=== PATIENT | male | born 1960 | race Caucasian/White ===

== ENCOUNTER → 2017-09-17 | Outpatient (CLI) | payer BC, OTHER ==
[~2017-09-17] MED LIST: CEFD300C PO; CETI10CA PO; DIPH25TA82 PO
--- NOTE | 2017-09-17 10:49 | Diagnostic Imaging Report ---
PROCEDURE: CT sinuses without contrast TECHNIQUE: Multiple contiguous axial images were obtained through the sinuses without the use of intravenous contrast. Coronal and sagittal reformations were then performed. INDICATION: Chronic sinus infection. No priors for comparison. FINDINGS: The mastoid air cells, middle ear cavities and inner ear structures appeared unremarkable. External auditory canals appeared normal. The sphenoid sinuses are clear. There is very minimal membrane thickening of few ethmoid air cells anteriorly ethmoids otherwise clear. Frontal sinuses are clear. There is lobular membrane thickening in the bilateral maxillary sinus floors left somewhat greater than right. Tissue thickening on the left with maximal 6.8 mm. The some low-density debris likely some mucus or focal membrane thickening narrowing but not obstructing the right maxillary sinus ostia. The bony infundibula showed no irregularity. There is very minimal bilateral nasal septal spurring of only a few millimeter likely insignificant. The nasal bones themselves unremarkable. IMPRESSION: Mild left greater than right maxillary sinus membrane thickening. The focal membrane thickening or mucous debris narrows but did not obstruct the right maxillary sinus ostia. Trace membrane thickening in the ethmoids. No air-fluid levels. No bony destruction. Dictated by: Dictated on workstation # [id number]
== END ==
LOC: RAD 09:10
PROVIDERS: ATTEND Otolaryngology Otolaryngology/Facial Plastic Surgery
DX: J32.9 Chronic sinusitis, unspecified (principal)
CPT/HCPCS: 70486

== ENCOUNTER 2017-10-05 12:51 | Outpatient (CLI) | payer BC ==
[~2017-10-05] VITALS: Ht 182.9 cm; Wt 104.9 kg
[2017-10-05 12:59] VITALS: BP 125/76
[2017-10-05] MEDS ORDERED: CYAN250010 PO (13:04)
[2017-10-05] MEDS ORDERED: BIOF1TAB6 PO (13:04)
[2017-10-05] MEDS ORDERED: GINK30CA3 PO (13:04)
[2017-10-05] MEDS ORDERED: MULT-517 PO (13:04)
[2017-10-05] MEDS ORDERED: DOCU-238 PO (13:04)
[2017-10-05 13:47] LABS: BASOPHILS % (AUTO) 0 % (0-10); EOSINOPHILS % (AUTO) 0 % (0-10); HEMATOCRIT 41 % (40-54); HEMOGLOBIN 14.1 G/DL (13.3-17.7); LYMPHOCYTES # (AUTO) 0.9 X 10^3 (1.0-4.0); LYMPHOCYTES % (AUTO) 12 % (12-44); MEAN CORPUSCULAR HEMOGLOBIN 33 PG (25-34); MEAN CORPUSCULAR HGB CONC 34 G/DL (32-36); MEAN CORPUSCULAR VOLUME 95 FL (80-99); MEAN PLATELET VOLUME 8.8 FL (7.4-10.4); MONOCYTES # (AUTO) 0.3 X 10^3 (0.0-1.0); MONOCYTES % (AUTO) 3 % (0-12); NEUTROPHILS # (AUTO) 6.6 X 10^3 (1.8-7.8); NEUTROPHILS % (AUTO) 85 % (42-75); PLATELET COUNT 289 10^3/uL (130-400); RED BLOOD COUNT 4.33 10^6/uL (4.35-5.85); RED CELL DISTRIBUTION WIDTH 11.3 % (10.0-14.5); WHITE BLOOD COUNT 7.7 10^3/uL (4.3-11.0)
[2017-10-05 14:01] LABS: BUN/CREATININE RATIO 18; CALCIUM 9.4 MG/DL (8.5-10.1); CARBON DIOXIDE 23 MMOL/L (21-32); CHLORIDE 106 MMOL/L (98-107); CREATININE SERUM 1.02 MG/DL (0.60-1.30); GFR ESTIMATED > 60; GLUCOSE 118 MG/DL (70-105); POTASSIUM 4.2 MMOL/L (3.6-5.0); SODIUM 136 MMOL/L (135-145)
== END 2017-10-05 15:00 | disposition home or self-care (01) ==
LOC: PREOP 12:51
PROVIDERS: ATTEND Otolaryngology Otolaryngology/Facial Plastic Surgery
DX: Z01.810 Encounter for preprocedural cardiovascular examination (principal); Z01.812 Encounter for preprocedural laboratory examination; Z11.2 Encounter for screening for other bacterial diseases; J32.9 Chronic sinusitis, unspecified; J34.2 Deviated nasal septum; J34.3 Hypertrophy of nasal turbinates
CPT/HCPCS: 36415; 80048; 85025; 87081

== ENCOUNTER 2017-10-08 07:44 | Day surgery (SDC) | payer BC ==
[~2017-10-08] VITALS: Ht 182.9 cm; Wt 104.9 kg
[~2017-10-08 07:44] MED LIST changes: +BIOF1TAB6 PO; +CYAN250010 PO; +DOCU-238 PO; +GINK30CA3 PO; +MULT-517 PO
--- OUTSIDE RECORDS SUMMARY | 2017-10-08 07:49 | XMS REPORT | Continuity of Care Document ---
Author Author [facility] Address Unknown Phone Unavailable Allergies Active Description Code Type Severity Reaction Onset Reported/Identified Relationship to Patient Clinical Status Yes No Known Drug Allergies [id number] Drug Allergy Unknown N/A 10/05/2017 Medications There is no data. Problems Date Dx Coded Attending Type Code Diagnosis Diagnosed By 07/02/1328 AMANDA OATES, CECILIA Hopper Ot M54.12 07/22/2010 477.9 RHINITIS 07/22/2010 SUNSHINE DO, ARLENE K 477.9 RHINITIS 07/22/2010 SUNSHINE DO, ARLENE K 477.9 RHINITIS 07/22/2010 SUNSHINE DO, ARLENE K 477.9 RHINITIS 07/22/2010 SUNSHINE DO, ARLENE K 477.9 RHINITIS 07/22/2010 TAYE CEE DDS 477.9 RHINITIS 07/22/2010 SUNSHINE DO, ARLENE K 477.9 RHINITIS 07/22/2010 ELIDA HERRERA PA-C 477.9 RHINITIS 07/22/2010 SUNSHINE DO, ARLENE K 477.9 RHINITIS 07/22/2010 SUNSHINE DO, ARLENE K 477.9 RHINITIS 07/22/2010 SUNSHINE DO, ARLENE K 477.9 RHINITIS 07/22/2010 SUNSHINE DO, ARLENE K 477.9 RHINITIS 07/22/2010 SUNSHINE DO, ARLENE K 477.9 RHINITIS 07/22/2010 EARLENE SHULTZ APRN 477.9 RHINITIS 07/22/2010 SUNSHINE DO, ARLENE K 477.9 RHINITIS 07/22/2010 SUNSHINE DO, ARLENE K 477.9 RHINITIS 07/22/2010 SUNSHINE DO, ARLENE K 477.9 RHINITIS 08/14/2010 461.9 Sinusitis Acute 08/14/2010 SUNSHINE DO, ARLENE K 461.9 Sinusitis Acute 08/14/2010 SUNSHINE DO, ARLENE K 461.9 Sinusitis Acute 08/14/2010 SUNSHINE DO, ARLENE K 461.9 Sinusitis Acute 08/14/2010 SUNSHINE DO, ARLENE K 461.9 Sinusitis Acute 08/14/2010 WHITE DDS, TAYE J 461.9 Sinusitis Acute 08/14/2010 SUNSHINE DO, ARLENE K 461.9 Sinusitis Acute 08/14/2010 ELIDA HERRERA PA-C 461.9 Sinusitis Acute 08/14/2010 SUNSHINE DO, ARLENE K 461.9 Sinusitis Acute 08/14/2010 SUNSHINE DO, ARLENE K 461.9 Sinusitis Acute 08/14/2010 SUNSHINE DO, ARLENE K 461.9 Sinusitis Acute 08/14/2010 SUNSHINE DO, ARLENE K 461.9 Sinusitis Acute 08/14/2010 SUNSHINE DO, ARLENE K 461.9 Sinusitis Acute 08/14/2010 EARLENE SHULTZ APRN 461.9 Sinusitis Acute 08/14/2010 SUNSHINE DO, ARLENE K 461.9 Sinusitis Acute 08/14/2010 SUNSHINE DO, ARLENE K 461.9 Sinusitis Acute 08/14/2010 SUNSHINE DO, ARLENE K 461.9 Sinusitis Acute 08/18/2011 782.1 Rash 08/18/2011 SUNSHINE DO, ARLENE K 782.1 Rash 08/18/2011 SUNSHINE DO, ARLENE K 782.1 Rash 08/18/2011 SUNSHINE DO, ARLENE K 782.1 Rash 08/18/2011 SUNSHINE DO, ARLENE K 782.1 Rash 08/18/2011 WHITE DDS, TAYE J 782.1 Rash 08/18/2011 SUNSHINE DO, ARLENE K 782.1 Rash 08/18/2011 ELIDA HERRERA PA-C 782.1 Rash 08/18/2011 SUNSHINE DO, ARLENE K 782.1 Rash 08/18/2011 SUNSHINE DO, ARLENE K 782.1 Rash 08/18/2011 SUNSHINE DO, ARLENE K 782.1 Rash 08/18/2011 SUNSHINE DO, ARLENE K 782.1 Rash 08/18/2011 SUNSHINE DO, ARLENE K 782.1 Rash 08/18/2011 EARLENE SHULTZ APRN R 782.1 Rash 08/18/2011 SUNSHINE DO, ARLENE K 782.1 Rash 08/18/2011 SUNSHINE DO, ARLENE K 782.1 Rash 08/18/2011 SUNSHINE DO, ARLENE K 782.1 Rash 09/26/2011 465.9 Upper Respiratory Infection 09/26/2011 SUNSHINE DO, ARLENE K 465.9 Upper Respiratory Infection 09/26/2011 SUNSHINE DO, ARLENE K 465.9 Upper Respiratory Infection 09/26/2011 SUNSHINE DO, ARLENE K 465.9 Upper Respiratory Infection 09/26/2011 SUNSHINE DO, ARLENE K 465.9 Upper Respiratory Infection 09/26/2011 TAYE CEE DDS 465.9 Upper Respiratory Infection 09/26/2011 SUNSHINE DO, ARLENE K 465.9 Upper Respiratory Infection 09/26/2011 ELIDA HERRERA PA-C 465.9 Upper Respiratory Infection 09/26/2011 SUNSHINE DO, ARLENE K 465.9 Upper Respiratory Infection 09/26/2011 SUNSHINE DO, ARLENE K 465.9 Upper Respiratory Infection 09/26/2011 SUNSHINE DO, ARLENE K 465.9 Upper Respiratory Infection 09/26/2011 SUNSHINE DO, ARLENE K 465.9 Upper Respiratory Infection 09/26/2011 SUNSHINE DO, ARLENE K 465.9 Upper Respiratory Infection 09/26/2011 EARLENE SHULTZ APRN 465.9 Upper Respiratory Infection 09/26/2011 SUNSHINE DO, ARLENE K 465.9 Upper Respiratory Infection 09/26/2011 SUNSHINE DO, ARLENE K 465.9 Upper Respiratory Infection 09/26/2011 SUNSHINE DO, ARLENE K 465.9 Upper Respiratory Infection 12/25/2011 716.90 UNSPECIFIED ARTHROPATHY SITE UNSPECIFIED 12/25/2011 SUNSHINE DO, ARLENE K 716.90 UNSPECIFIED ARTHROPATHY SITE UNSPECIFIED 12/25/2011 SUNSHINE DO, ARLENE K 716.90 UNSPECIFIED ARTHROPATHY SITE UNSPECIFIED 12/25/2011 SUNSHINE DO, ARLENE K 716.90 UNSPECIFIED ARTHROPATHY SITE UNSPECIFIED 12/25/2011 SUNSHINE DO, ARLENE K 716.90 UNSPECIFIED ARTHROPATHY SITE UNSPECIFIED 12/25/2011 TAYE CEE DDS 716.90 UNSPECIFIED ARTHROPATHY SITE UNSPECIFIED 12/25/2011 SUNSHINE DO, ARLENE K 716.90 UNSPECIFIED ARTHROPATHY SITE UNSPECIFIED 12/25/2011 ELIDA HERRERA PA-C 716.90 UNSPECIFIED ARTHROPATHY SITE UNSPECIFIED 12/25/2011 SUNSHINE DO, ARLENE K 716.90 UNSPECIFIED ARTHROPATHY SITE UNSPECIFIED 12/25/2011 SUNSHINE DO, ARLENE K 716.90 UNSPECIFIED ARTHROPATHY SITE UNSPECIFIED 12/25/2011 SUNSHINE DO, ARLENE K 716.90 UNSPECIFIED ARTHROPATHY SITE UNSPECIFIED 12/25/2011 SUNSHINE DO, ARLENE K 716.90 UNSPECIFIED ARTHROPATHY SITE UNSPECIFIED 12/25/2011 SUNSHINE DO, ARLENE K 716.90 UNSPECIFIED ARTHROPATHY SITE UNSPECIFIED 12/25/2011 CARRINGTON SHOOK EARLENE R 716.90 UNSPECIFIED ARTHROPATHY SITE UNSPECIFIED 12/25/2011 SUNSHINE DO, ARLENE K 716.90 UNSPECIFIED ARTHROPATHY SITE UNSPECIFIED 12/25/2011 SUNSHINE DO, ARLENE K 716.90 UNSPECIFIED ARTHROPATHY SITE UNSPECIFIED 12/25/2011 SUNSHINE DO, ARLENE K 716.90 UNSPECIFIED ARTHROPATHY SITE UNSPECIFIED 06/18/2012 461.9 SINUSITIS ACUTE 06/18/2012 466.0 BRONCHITIS, ACUTE 06/18/2012 704.8 OTHER SPECIFIED DISEASES OF HAIR AND HAIR FOLLICLES 06/18/2012 SUNSHINE DO, ARLENE K 461.9 SINUSITIS ACUTE 06/18/2012 SUNSHINE DO, ARLENE K 466.0 BRONCHITIS, ACUTE 06/18/2012 SUNSHINE DO, ARLENE K 704.8 OTHER SPECIFIED DISEASES OF HAIR AND HAIR FOLLICLES 06/18/2012 SUNSHINE DO, ARLENE K 461.9 SINUSITIS ACUTE 06/18/2012 SUNSHINE DO, ARLENE K 466.0 BRONCHITIS, ACUTE 06/18/2012 SUNSHINE DO, ARLENE K 704.8 OTHER SPECIFIED DISEASES OF HAIR AND HAIR FOLLICLES 06/18/2012 SUNSHINE DO, ARLENE K 461.9 SINUSITIS ACUTE 06/18/2012 SUNSHINE DO, ARLENE K 466.0 BRONCHITIS, ACUTE 06/18/2012 SUNSHINE DO, ARLENE K 704.8 OTHER SPECIFIED DISEASES OF HAIR AND HAIR FOLLICLES 06/18/2012 SUNSHINE DO, ARLENE K 461.9 SINUSITIS ACUTE 06/18/2012 SUNSHINE DO, ARLENE K 466.0 BRONCHITIS, ACUTE 06/18/2012 SUNSHINE DO, ARLENE K 704.8 OTHER SPECIFIED DISEASES OF HAIR AND HAIR FOLLICLES 06/18/2012 WHITE DDS, TAYE J 461.9 SINUSITIS ACUTE 06/18/2012 WHITE DDS, TAYE J 466.0 BRONCHITIS, ACUTE 06/18/2012 WHITE DDS, TAYE J 704.8 OTHER SPECIFIED DISEASES OF HAIR AND HAIR FOLLICLES 06/18/2012 SUNSHINE DO, ARLENE K 461.9 SINUSITIS ACUTE 06/18/2012 SUNSHINE DO, ARLENE K 466.0 BRONCHITIS, ACUTE 06/18/2012 SUNSHINE DO, ARLENE K 704.8 OTHER SPECIFIED DISEASES OF HAIR AND HAIR FOLLICLES 06/18/2012 ELIDA HERRERA PA-C 461.9 SINUSITIS ACUTE 06/18/2012 ELIDA HERRERA PA-C M 466.0 BRONCHITIS, ACUTE 06/18/2012 ELIDA HERRERA PA-C M 704.8 OTHER SPECIFIED DISEASES OF HAIR AND HAIR FOLLICLES 06/18/2012 SUNSHINE DO, ARLENE K 461.9 SINUSITIS ACUTE 06/18/2012 SUNSHINE DO, ARLENE K 466.0 BRONCHITIS, ACUTE 06/18/2012 SUNSHINE DO, ARLENE K 704.8 OTHER SPECIFIED DISEASES OF HAIR AND HAIR FOLLICLES 06/18/2012 SUNSHINE DO, ARLENE K 461.9 SINUSITIS ACUTE 06/18/2012 SUNSHINE DO, ARLENE K 466.0 BRONCHITIS, ACUTE 06/18/2012 SUNSHINE DO, ARLENE K 704.8 OTHER SPECIFIED DISEASES OF HAIR AND HAIR FOLLICLES 06/18/2012 SUNSHINE DO, ARLENE K 461.9 SINUSITIS ACUTE 06/18/2012 SUNSHINE DO, ARLENE K 466.0 BRONCHITIS, ACUTE 06/18/2012 SUNSHINE DO, ARLENE K 704.8 OTHER SPECIFIED DISEASES OF HAIR AND HAIR FOLLICLES 06/18/2012 SUNSHINE DO, ARLENE K 461.9 SINUSITIS ACUTE 06/18/2012 SUNSHINE DO, ARLENE K 466.0 BRONCHITIS, ACUTE 06/18/2012 SUNSHINE DO, ARLENE K 704.8 OTHER SPECIFIED DISEASES OF HAIR AND HAIR FOLLICLES 06/18/2012 SUNSHINE DO, ARLENE K 461.9 SINUSITIS ACUTE 06/18/2012 SUNSHINE DO, ARLENE K 466.0 BRONCHITIS, ACUTE 06/18/2012 SUNSHINE DO, ARLENE K 704.8 OTHER SPECIFIED DISEASES OF HAIR AND HAIR FOLLICLES 06/18/2012 CARRINGTON ASPHALT SMOOTHER, EARLENE R 461.9 SINUSITIS ACUTE 06/18/2012 CARRINGTON ASPHALT SMOOTHER, EARLENE R 466.0 BRONCHITIS, ACUTE 06/18/2012 CARRINGTON ASPHALT SMOOTHER, EARLENE R 704.8 OTHER SPECIFIED DISEASES OF HAIR AND HAIR FOLLICLES 06/18/2012 SUNSHINE DO, ARLENE K 461.9 SINUSITIS ACUTE 06/18/2012 SUNSHINE DO, ARLENE K 466.0 BRONCHITIS, ACUTE 06/18/2012 SUNSHINE DO, ARLENE K 704.8 OTHER SPECIFIED DISEASES OF HAIR AND HAIR FOLLICLES 06/18/2012 SUNSHINE DO, ARLENE K 461.9 SINUSITIS ACUTE 06/18/2012 SUNSHINE DO, ARLENE K 466.0 BRONCHITIS, ACUTE 06/18/2012 SUNSHINE DO, ARLENE K 704.8 OTHER SPECIFIED DISEASES OF HAIR AND HAIR FOLLICLES 06/18/2012 SUNSHINE DO, ARLENE K 461.9 SINUSITIS ACUTE 06/18/2012 SUNSHINE DO, ARLENE K 466.0 BRONCHITIS, ACUTE 06/18/2012 SUNSHINE DO, ARLENE K 704.8 OTHER SPECIFIED DISEASES OF HAIR AND HAIR FOLLICLES 05/09/2013 JONG HANEY ARLENE K 780.79 OTHER MALAISE AND FATIGUE 05/09/2013 JONG HANEY ARLENE K V15.09 PERSONAL HISTORY OF OTHER ALLERGY OTHER THAN TO MEDICINAL AGENTS 05/09/2013 JONG HANEY ARLENE K 780.79 OTHER MALAISE AND FATIGUE 05/09/2013 JONG HANEY ARLENE K V04.81 FLU SHOT 05/09/2013 JONG HANEY ARLENE K V15.09 PERSONAL HISTORY OF OTHER ALLERGY OTHER THAN TO MEDICINAL AGENTS 05/09/2013 JONG HANEY ARLENE K 780.79 OTHER MALAISE AND FATIGUE 05/09/2013 JONG HANEY ARLENE K V04.81 FLU SHOT 05/09/2013 SUNSHINE DO ARLENE K V15.09 PERSONAL HISTORY OF OTHER ALLERGY OTHER THAN TO MEDICINAL AGENTS 05/09/2013 JONG HANEY ARLENE K 780.79 OTHER MALAISE AND FATIGUE 05/09/2013 JONG HANEY ARLENE K V04.81 FLU SHOT 05/09/2013 SUNSHINE DO ARLENE K V15.09 PERSONAL HISTORY OF OTHER ALLERGY OTHER THAN TO MEDICINAL AGENTS 05/09/2013 WHITE DDS, TAYE J 780.79 OTHER MALAISE AND FATIGUE 05/09/2013 WHITE DDS, TYAE J V04.81 FLU SHOT 05/09/2013 WHITE DDS, TAYE J V15.09 PERSONAL HISTORY OF OTHER ALLERGY OTHER THAN TO MEDICINAL AGENTS 05/09/2013 SUNSHINE DO ARLENE K 780.79 OTHER MALAISE AND FATIGUE 05/09/2013 JONG HANEY ARLENE K V04.81 FLU SHOT 05/09/2013 SUNSHINE DO, ARLENE K V15.09 PERSONAL HISTORY OF OTHER ALLERGY OTHER THAN TO MEDICINAL AGENTS 05/09/2013 JAVIER GILBERT, ELIDA Calixto 780.79 OTHER MALAISE AND FATIGUE 05/09/2013 JAVIER GILBERT, ELIDA Calixto V04.81 FLU SHOT 05/09/2013 JAVIER GILBERT, ELIDA Calixto V15.09 PERSONAL HISTORY OF OTHER ALLERGY OTHER THAN TO MEDICINAL AGENTS 05/09/2013 SUNSHINE DO, ARLENE Flores 780.79 OTHER MALAISE AND FATIGUE 05/09/2013 SUNSHINE DO, ARLENE K V04.81 FLU SHOT 05/09/2013 SUNSHINE DO, ARLENE K V15.09 PERSONAL HISTORY OF OTHER ALLERGY OTHER THAN TO MEDICINAL AGENTS 05/09/2013 SUNSHINE DO, ARLENE K 780.79 OTHER MALAISE AND FATIGUE 05/09/2013 SUNSHINE DO, ARLENE K V04.81 FLU SHOT 05/09/2013 SUNSHINE DO, ARLENE K V15.09 PERSONAL HISTORY OF OTHER ALLERGY OTHER THAN TO MEDICINAL AGENTS 05/09/2013 SUNSHINE DO, ARLENE K 780.79 OTHER MALAISE AND FATIGUE 05/09/2013 SUNSHINE DO, ARLENE K V04.81 FLU SHOT 05/09/2013 SUNSHINE DO, ARLENE K V15.09 PERSONAL HISTORY OF OTHER ALLERGY OTHER THAN TO MEDICINAL AGENTS 05/09/2013 SUNSHINE DO, ARLENE K 780.79 OTHER MALAISE AND FATIGUE 05/09/2013 SUNSHINE DO, ARLENE K V04.81 FLU SHOT 05/09/2013 SUNSHINE DO, ARLENE K V15.09 PERSONAL HISTORY OF OTHER ALLERGY OTHER THAN TO MEDICINAL AGENTS 05/09/2013 SUNSHINE DO, ARLENE K 780.79 OTHER MALAISE AND FATIGUE 05/09/2013 SUNSHINE DO, ARLENE K V04.81 FLU SHOT 05/09/2013 SUNSHINE DO, ARLENE K V15.09 PERSONAL HISTORY OF OTHER ALLERGY OTHER THAN TO MEDICINAL AGENTS 05/09/2013 CARRINGTON ASPHALT SMOOTHEREARLENE Reina R 780.79 OTHER MALAISE AND FATIGUE 05/09/2013 CARRINGTON ASPHALT SMOOTHEREARLENE Reina R V04.81 FLU SHOT 05/09/2013 EARLENE SHULTZ APRN R V15.09 PERSONAL HISTORY OF OTHER ALLERGY OTHER THAN TO MEDICINAL AGENTS 05/09/2013 SUNSHINE DO, ARLENE K 780.79 OTHER MALAISE AND FATIGUE 05/09/2013 SUNSHINE DO, ARLENE K V04.81 FLU SHOT 05/09/2013 SUNSHINE DO, ARLENE K V15.09 PERSONAL HISTORY OF OTHER ALLERGY OTHER THAN TO MEDICINAL AGENTS 05/09/2013 SUNSHINE DO, ARLENE K 780.79 OTHER MALAISE AND FATIGUE 05/09/2013 SUNSHINE DO, ARLENE K V04.81 FLU SHOT 05/09/2013 SUNSHINE DO, ARLENE K V15.09 PERSONAL HISTORY OF OTHER ALLERGY OTHER THAN TO MEDICINAL AGENTS 05/09/2013 SUNSHINE DO, ARLENE K 780.79 OTHER MALAISE AND FATIGUE 05/09/2013 SUNSHINE DO, ARLENE K V04.81 FLU SHOT 05/09/2013 SUNSHINE DO, ARLENE K V15.09 PERSONAL HISTORY OF OTHER ALLERGY OTHER THAN TO MEDICINAL AGENTS 05/14/2013 SUNSHINE DO, ARLENE K 257.2 HYPOGONADISM 05/14/2013 SUNSHINE DO, ARLENE K 257.2 HYPOGONADISM 05/14/2013 SUNSHINE DO, ARLENE K 257.2 HYPOGONADISM 05/14/2013 TAYE CEE DDS 257.2 HYPOGONADISM 05/14/2013 SUNSHINE DO, ARLENE K 257.2 HYPOGONADISM 05/14/2013 ELIDA HERRERA PA-C 257.2 HYPOGONADISM 05/14/2013 SUNSHINE DO, ARLENE K 257.2 HYPOGONADISM 05/14/2013 SUNSHINE DO, ARLENE K 257.2 HYPOGONADISM 05/14/2013 SUNSHINE DO, ARLENE K 257.2 HYPOGONADISM 05/14/2013 SUNSHINE DO, ARLENE K 257.2 HYPOGONADISM 05/14/2013 SUNSHINE DO, ARLENE K 257.2 HYPOGONADISM 05/14/2013 EARLENE SHULTZ APRN 257.2 HYPOGONADISM 05/14/2013 SUNSHINE DO, ARLENE K 257.2 HYPOGONADISM 05/14/2013 SUNSHINE DO, ARLENE K 257.2 HYPOGONADISM 05/14/2013 SUNSHINE DO, ARLENE K 257.2 HYPOGONADISM 08/08/2013 SUNSHINE DO, ARLENE K 461.9 SINUSITIS ACUTE 08/08/2013 SUNSHINE DO, ARLENE K 782.1 RASH AND OTHER NONSPECIFIC SKIN ERUPTION 08/08/2013 SUNSHINE DO, ARLENE K 461.9 SINUSITIS ACUTE 08/08/2013 SUNSHINE DO, ARLENE K 782.1 RASH AND OTHER NONSPECIFIC SKIN ERUPTION 08/08/2013 SUNSHINE DO, ARLENE K 461.9 SINUSITIS ACUTE 08/08/2013 SUNSHIEN DO, ARLENE K 782.1 RASH AND OTHER NONSPECIFIC SKIN ERUPTION 08/08/2013 SUNSHINE DO, ARLENE K 461.9 SINUSITIS ACUTE 08/08/2013 SUNSHINE DO, ARLENE K 782.1 RASH AND OTHER NONSPECIFIC SKIN ERUPTION 08/08/2013 SUNSHINE DO, ARLENE K 461.9 SINUSITIS ACUTE 08/08/2013 SUNSHINE DO, ARLENE K 782.1 RASH AND OTHER NONSPECIFIC SKIN ERUPTION 08/08/2013 SHULTZ ASPHALT SMOOTHER EARLENE R 461.9 SINUSITIS ACUTE 08/08/2013 SHULTZ ASPHALT SMOOTHER EARLENE R 782.1 RASH AND OTHER NONSPECIFIC SKIN ERUPTION 08/08/2013 SUNSHINE DO, ARLENE K 461.9 SINUSITIS ACUTE 08/08/2013 SUNSHINE DO, ARLENE K 782.1 RASH AND OTHER NONSPECIFIC SKIN ERUPTION 08/08/2013 SUNSHINE DO, ARLENE K 461.9 SINUSITIS ACUTE 08/08/2013 SUNSHINE DO, ARLENE K 782.1 RASH AND OTHER NONSPECIFIC SKIN ERUPTION 08/08/2013 SUNSHINE DO, ARLENE K 461.9 SINUSITIS ACUTE 08/08/2013 SUNSHINE DO, ARLENE K 782.1 RASH AND OTHER NONSPECIFIC SKIN ERUPTION 12/27/2013 CARRINGTON [place] S[place] ReinaEARLENE R 477.9 ALLERGIC RHINITIS CAUSE UNSPECIFIED 12/27/2013 [place] SHULTZ APRNRICIA R 706.1 OTHER ACNE 12/27/2013 CARRINGTON [place]ALT S[place] ReinaEARLENE R V58.69 HIGH RISK MEDICATION 12/27/2013 SUNSHINE DO, ARLENE K 477.9 ALLERGIC RHINITIS CAUSE UNSPECIFIED 12/27/2013 SUNSHINE DO, ARLENE K 706.1 OTHER ACNE 12/27/2013 SUNSHINE DO, ARLENE K V58.69 HIGH RISK MEDICATION 12/27/2013 SUNSHINE DO, ARLENE K 477.9 ALLERGIC RHINITIS CAUSE UNSPECIFIED 12/27/2013 SUNSHINE DO, ARLENE K 706.1 OTHER ACNE 12/27/2013 SUNSHINE DO, ARLENE K V58.69 HIGH RISK MEDICATION 12/27/2013 SUNSHINE DO, ARLENE K 477.9 ALLERGIC RHINITIS CAUSE UNSPECIFIED 12/27/2013 SUNSHINE DO, ARLENE K 706.1 OTHER ACNE 12/27/2013 SUNSHINE DO, ARLENE K V58.69 HIGH RISK MEDICATION 01/20/2014 SUNSHINE DO, ARLENE K 784.0 HEADACHE 01/20/2014 ARLENE SUNSHINE DO K 784.0 HEADACHE 01/20/2014 SUNSHINE ARLENE HANEY K 784.0 HEADACHE 06/20/2014 AMANDA OATES, CECILIA R Ot 786.50 07/31/2014 WILBER OATES, ARASH A Ot 185 07/31/2014 WILBER OATES, ARASH A Ot 553.1 08/23/2014 AMANDA OATES, CECILIA R Ot 786.50 08/23/2014 WILBER OATES, ARASH A Ot 185 08/23/2014 WILBER OATES, ARASH A Ot 553.1 08/23/2014 WILBER OATES, ARASH A Ot 185 08/23/2014 WILBER OATES, ARASH A Ot V72.63 08/23/2014 WILBER OATES, ARASH A Ot V74.8 08/24/2014 WILBER OATES, ARASH A Ot 185 08/24/2014 WILBER OATES, ARASH A Ot 185 MALIGN NEOPL PROSTATE 08/24/2014 WILBER OATES, ARASH A Ot C61 08/25/2014 WILBER OATES, ARASH A Ot 185 08/25/2014 WILBER OATES, ARASH A Ot V72.63 08/25/2014 WILBER OATES, ARASH A Ot V74.8 09/14/2014 WILBER OATES, ARASH A Ot 185 09/14/2014 WILBER OATES, ARASH A Ot V72.63 09/14/2014 WILBER OATES, ARASH A Ot V74.8 06/30/2015 AMANDA OATES, CECILIA R Ot 786.50 06/30/2015 WILBER OATES, ARASH A Ot 185 06/30/2015 WILBER OATES, ARASH A Ot 553.1 06/30/2015 WILBER OATES, ARASH A Ot 185 06/30/2015 WILBER OATES, ARASH A Ot V72.63 06/30/2015 WILBER OATES, ARASH A Ot V74.8 08/20/2015 AMANDA OATES, CECILIA R Ot 786.50 08/20/2015 WILBER OATES, ARASH A Ot 185 08/20/2015 WILBER OATES, ARASH A Ot 553.1 08/20/2015 WILBER OATES, ARASH A Ot 185 08/20/2015 WILBER OATES, ARASH A Ot V72.63 08/20/2015 WILBER OATES, ARASH A Ot V74.8 08/20/2015 AMANDA OATES, CECILIA R Ot 786.50 08/20/2015 WILBER OATES, ARASH A Ot 185 08/20/2015 WILBER OATES, ARASH A Ot 553.1 08/20/2015 WILBER OATES, ARASH A Ot 185 08/20/2015 WILBER OATES, ARASH A Ot V72.63 08/20/2015 WILBER OATES, ARASH A Ot V74.8 08/27/2015 AMANDA OATES, CECILIA R Ot M54.13 08/27/2015 AMANDA OATES, CEICLIA R Ot 786.50 08/27/2015 WILBER OATES, ARASH A Ot 185 08/27/2015 WILBER OATES, ARASH A Ot 553.1 08/27/2015 WILBER OATES, ARASH A Ot 185 08/27/2015 WILBER OATES, ARASH A Ot V72.63 08/27/2015 WILBER OATES, ARASH A Ot V74.8 08/27/2015 AMANDA OATES, CECILIA R Ot M54.13 08/30/2015 AMANDA OATES, CECILIA R Ot 786.50 08/30/2015 WILBER OATES, ARASH A Ot 185 08/30/2015 WILBER OATES, ARASH A Ot 553.1 08/30/2015 WILBER OATES, ARASH A Ot 185 08/30/2015 WILBER OATES, ARASH A Ot V72.63 08/30/2015 WILBER OATES, ARASH A Ot V74.8 08/30/2015 AMANDA OATES, CECILIA R Ot M54.13 09/04/2015 AMANDA OATES, CECILIA R Ot M54.12 09/12/2015 AMANDA OATES, CECILIA R Ot M54.12 RADICULOPATHY, CERVICAL REGION 09/25/2015 AMANDA OATES, CECILIA R Ot M54.12 10/02/2015 AMANDA OATES, CECILIA R Ot M54.12 04/17/2017 AMANDA OATES, CECILIA R Ot M54.12 RADICULOPATHY, CERVICAL REGION 09/10/2017 AMANDA OATES, CECILIA R Ot 786.50 CHEST PAIN NOS 09/10/2017 ARASH MERINO MD Ot 185 MALIGN NEOPL PROSTATE 09/10/2017 ARASH MERINO MD Ot 553.1 UMBILICAL HERNIA 09/10/2017 ARASH MERINO MD Ot 185 MALIGN NEOPL PROSTATE 09/10/2017 ARASH MERINO MD Ot V72.63 PRE-PROCEDURAL LABORATORY EXAMINATION 09/10/2017 ARASH MERINO MD Ot V74.8 SCREEN-BACTERIAL DIS NEC 09/10/2017 AMANDA OATES, CECILIA R Ot M54.12 RADICULOPATHY, CERVICAL REGION 09/10/2017 AMANDA OATES, CECILIA R Ot M54.13 RADICULOPATHY, CERVICOTHORACIC REGION 09/10/2017 AMANDA OATES, CECILIA R Ot 786.50 CHEST PAIN NOS 09/10/2017 ARASH MERINO MD Ot 185 MALIGN NEOPL PROSTATE 09/10/2017 ARASH MERINO MD Ot 553.1 UMBILICAL HERNIA 09/10/2017 ARASH MERINO MD Ot 185 MALIGN NEOPL PROSTATE 09/10/2017 ARASH MERINO MD Ot V72.63 PRE-PROCEDURAL LABORATORY EXAMINATION 09/10/2017 ARASH MERINO MD Ot V74.8 SCREEN-BACTERIAL DIS NEC 09/10/2017 AMANDA OATES, CECIILA R Ot M54.12 RADICULOPATHY, CERVICAL REGION 09/10/2017 AMANDA OATES, CECILIA R Ot M54.13 RADICULOPATHY, CERVICOTHORACIC REGION 09/18/2017 MILLA OATES, ANTONELLA Dc Ot J32.9 CHRONIC SINUSITIS, UNSPECIFIED 10/05/2017 AMANDA OATES, CECILIA R Ot 786.50 CHEST PAIN NOS 10/05/2017 ARASH MERINO MD Ot 185 MALIGN NEOPL PROSTATE 10/05/2017 ARASH MERINO MD Ot 553.1 UMBILICAL HERNIA 10/05/2017 ARASH MERINO MD Ot 185 MALIGN NEOPL PROSTATE 10/05/2017 ARASH MERINO MD Ot V72.63 PRE-PROCEDURAL LABORATORY EXAMINATION 10/05/2017 ARASH MERINO MD Ot V74.8 SCREEN-BACTERIAL DIS NEC 10/05/2017 AMANDA OATES, CECILIA Hopper Ot M54.12 RADICULOPATHY, CERVICAL REGION 10/05/2017 AMANDA OATES, CECILIA Hopper Ot M54.13 RADICULOPATHY, CERVICOTHORACIC REGION 10/05/2017 MILLA OATES, ANTONELLA Dc Ot J32.9 CHRONIC SINUSITIS, UNSPECIFIED Procedures Code Description [place] [address] ROUTINE VENIPUNCTURE 05/11/2013 97712 TESTOSTERONE TOTAL 05/11/2013 55040 TSH 05/11/2013 92613 THERAPUTIC INJ SQ/IM 05/19/2013 82452 THERAPUTIC INJ SQ/IM 06/20/2013 J1070 TESTOSTERONE CYPIONAT 100 MG 06/20/2013 35262 THERAPUTIC INJ SQ/IM 07/25/2013 47888 TESTOSTERONE TOTAL 07/29/2013 19329 ROUTINE VENIPUNCTURE 07/29/2013 29841 THERAPUTIC INJ SQ/IM 08/29/2013 81662 THERAPUTIC INJ SQ/IM 09/26/2013 44633 THERAPUTIC INJ SQ/IM 10/27/2013 36946 THERAPUTIC INJ SQ/IM 12/07/2013 96428 ROUTINE VENIPUNCTURE 12/27/2013 TESTFTSBM TESTOSTERONE TOTAL,FREE, SHBG,BIOVAILABLE(MALES) 12/27/2013 13392 TESTOSTERONE TOTAL MALES 01/23/2014 25641 HIV ANTIBODIES (RML) 01/23/2014 23557 ROUTINE VENIPUNCTURE 01/23/2014 58183 CBC 01/23/2014 3489125 GFR CALC (RESULT ONLY) 01/23/2014 26262 CMP 01/23/2014 51822 THERAPUTIC INJ SQ/IM 01/25/2014 17.42 LAPAROSCOPIC ROBOTIC ASSISTED PROCEDURE 08/23/2014 60.69 PROSTATECTOMY NEC 08/23/2014 Results Test Result Range Methicillin resistant Staphylococcus aureus (MRSA) screening culture - 13:20 Methicillin resistant Staphylococcus aureus (MRSA) screening culture NEG NRG Complete blood count (CBC) with automated white blood cell (WBC) differential - 10/05/17 13:25 Blood leukocytes automated count (number/volume) 7.7 10*3/uL 4.3-11.0 Blood erythrocytes automated count (number/volume) 4.33 10*6/uL 4.35-5.85 Venous blood hemoglobin measurement (mass/volume) 14.1 g/dL 13.3-17.7 Blood hematocrit (volume fraction) 41 % 40-54 Automated erythrocyte mean corpuscular volume 95 [foz_us] 80-99 Automated erythrocyte mean corpuscular hemoglobin (mass per erythrocyte) 33 pg 25-34 Automated erythrocyte mean corpuscular hemoglobin concentration measurement ( mass/volume) 34 g/dL 32-36 Automated erythrocyte distribution width ratio 11.3 % 10.0-14.5 Automated blood platelet count (count/volume) 289 10*3/uL 130-400 Automated blood platelet mean volume measurement 8.8 [foz_us] 7.4-10.4 Automated blood neutrophils/100 leukocytes 85 % 42-75 Automated blood lymphocytes/100 leukocytes 12 % 12-44 Blood monocytes/100 leukocytes 3 % 0-12 Automated blood eosinophils/100 leukocytes 0 % 0-10 Automated blood basophils/100 leukocytes 0 % 0-10 Blood neutrophils automated count (number/volume) 6.6 10*3 1.8-7.8 Blood lymphocytes automated count (number/volume) 0.9 10*3 1.0-4.0 Blood monocytes automated count (number/volume) 0.3 10*3 0.0-1.0 Automated eosinophil count 0.0 10*3/uL 0.0-0.3 Automated blood basophil count (count/volume) 0.0 10*3/uL 0.0-0.1 Whole blood basic metabolic panel - 10/05/17 13:25 Serum or plasma sodium measurement (moles/volume) 136 mmol/L 135-145 Serum or plasma potassium measurement (moles/volume) 4.2 mmol/L 3.6-5.0 Serum or plasma chloride measurement (moles/volume) 106 mmol/L 98-107 Carbon dioxide 23 mmol/L 21-32 Serum or plasma anion gap determination (moles/volume) 7 mmol/L 5-14 Serum or plasma urea nitrogen measurement (mass/volume) 18 mg/dL 7-18 Serum or plasma creatinine measurement (mass/volume) 1.02 mg/dL 0.60-1.30 Serum or plasma urea nitrogen/creatinine mass ratio 18 NRG Serum or plasma creatinine measurement with calculation of estimated glomerular filtration rate > NRG Serum or plasma glucose measurement (mass/volume) 118 mg/dL 70-105 Serum or plasma calcium measurement (mass/volume) 9.4 mg/dL 8.5-10.1 Encounters ACCT No. Visit Date/Time Discharge Status Pt. Type Provider Facility Loc./Unit Complaint [id number] 03/03/2014 15:23:00 03/03/2014 23:59:59 CLS Outpatient SUNSHINE DOARLENE [id number] 01/25/2014 12:03:00 01/25/2014 23:59:59 CLS Outpatient SUNSHINE DOARLENE [id number] 01/23/2014 07:58:00 01/23/2014 23:59:59 CLS Outpatient SUNSHINE DOARLENE [id number] 12/27/2013 16:10:00 12/27/2013 23:59:59 CLS Outpatient SHULTZ ASPHALT SMOOTHER, EARLENE Ward [id number] 12/07/2013 13:02:00 12/07/2013 23:59:59 CLS Outpatient SUNSHINE DOARLENE [id number] 10/27/2013 12:12:00 10/27/2013 23:59:59 CLS Outpatient SUNSHINE DOARLENE [id number] 09/26/2013 17:14:00 09/26/2013 23:59:59 CLS Outpatient SUNSHINE DOARLENE [id number] 08/29/2013 17:01:00 08/29/2013 23:59:59 CLS Outpatient SUNSHINE DOARLENE [id number] 08/08/2013 10:24:00 08/08/2013 23:59:59 CLS Outpatient SUNSHINE DOARLENE [id number] 07/29/2013 07:59:00 07/29/2013 23:59:59 CLS Outpatient ELIDA HERRERA PA-C [id number] 07/25/2013 17:10:00 07/25/2013 23:59:59 CLS Outpatient SUNSHINE DOARLENE [id number] 07/13/2013 11:57:00 07/13/2013 23:59:59 CLS Outpatient WHITE TAYE GUEVARA [id number] 06/20/2013 14:23:00 06/20/2013 23:59:59 CLS Outpatient SUNSHINE DOARLENE [id number] 05/19/2013 15:54:00 05/19/2013 23:59:59 CLS Outpatient JONG DOARLENE [id number] 05/11/2013 08:54:00 05/11/2013 23:59:59 CLS Outpatient SUNSHINE DOARLENE [id number] 05/09/2013 13:54:00 05/09/2013 23:59:59 CLS Outpatient ARLENE SUNSHINE DO [id number] 06/18/2012 15:37:00 06/18/2012 23:59:59 CLS Outpatient [id number] 10/05/2017 12:51:00 10/05/2017 15:00:00 DIS Outpatient ANTONELLA LOYOLA MD Via [facility] PREOP DEVIATED SEPTUM, CHRONIC SINUSITIS [id number] 09/17/2017 09:10:00 09/17/2017 23:59:59 CLS Outpatient ANTONELLA LOYOLA MD Via [facility] RAD CHRONIC SINUSITIS [id number] 09/06/2015 10:45:00 09/12/2015 13:29:00 DIS Outpatient CECILIA PATEL MD Via [facility] REHAB CERVICAL RADICULOPATHY [id number] 08/29/2015 12:23:00 08/29/2015 23:59:59 CLS Outpatient CECILIA PATEL MD Via [facility] RAD RADICULOPATHY [id number] 08/20/2015 15:38:00 08/20/2015 23:59:59 CLS Outpatient CECILIA PATEL MD Via [facility] LAB RADICULOPATHY [id number] 08/23/2014 06:00:00 08/24/2014 14:15:00 DIS Inpatient ARASH MERINO MD Via [facility] SURGICAL PROSTATE CANCER [id number] 08/17/2014 09:59:00 08/17/2014 23:59:59 CLS Outpatient ARASH MERINO MD Via [facility] PREOP PROSTATE CANCER [id number] 06/15/2014 12:05:00 06/15/2014 23:59:59 CLS Outpatient ARASH MERINO MD Via [facility] CARD PROSTATE CA [id number] 05/23/2014 07:15:00 05/23/2014 23:59:59 CLS Outpatient CECILIA PATEL MD Via [facility] CARD CP [id number] 10/08/2017 07:30:00 ZEHRA LOYOLA MD, ANTONELLA Fournier [facility] SDC DEVIATED SEPTUM,CHRONIC SINUSITIS
[2017-10-08] MEDS ORDERED: AMPICILLIN/SULBACTAM INJECTION 1.5 GM in NS (IVPB) 100 ML IV ONE (08:00)
[2017-10-08] MEDS ORDERED: HYDROCORTISONE 100 MG/2 ML (Solu-CORTEF) VIAL IV ONE (08:00)
[2017-10-08] MEDS: LACTATED RINGERS 1,000 ML IV PRN ×2 (08:15→09:53)
[2017-10-08 08:31] VITALS: BP 129/75
--- NOTE | 2017-10-08 08:48 | Progress Note-Pre Operative ---
Pre-Operative Progress Note H&P Reviewed The H&P was reviewed, patient examined and no changes noted. Date Seen by Provider: Oct 08, 2017 Time Seen by Provider: 08:30 Date H&P Reviewed: Oct 08, 2017 Time H&P Reviewed: 08:30 Pre-Operative Diagnosis: Bilat Chronic Sinustis, Deviated septum, Bilat hyper of Inf Turbs ANTONELLA LOYOLA MD Oct 08, 2017 8:48 am
[2017-10-08] MEDS ORDERED: proPOfol 200 MG/20 ML (DIPRIVAN) VIAL IV ONE (08:50)
[2017-10-08] MEDS ORDERED: MIDAZOLAM 2 MG/2 ML (VERSED) VIAL ONE (08:51)
[2017-10-08] MEDS ORDERED: SEVOFLURANE (ULTANE) 15 ML INHAL SOLN ONE ×7 (08:51→10:26)
[2017-10-08] MEDS ORDERED: DEXAMETHASONE 10 MG/ML (DECADRON) 1 ML VIAL ONE (08:51)
[2017-10-08] MEDS ORDERED: ONDANSETRON 4 MG/2 ML (SDV) Z0FRAN ONE (08:51)
[2017-10-08] MEDS ORDERED: fentaNYL INJECTION 100 MCG/2 ML AMP ONE ×2 (08:51→09:38)
[2017-10-08] MEDS ORDERED: ROCURONIUM 10 MG/ML 5 ML SYRINGE IV ONE ×2 (08:51→10:45)
[2017-10-08] MEDS ORDERED: PHENYLEPHRINE 0.5% NASAL SPR (NEO-SYNEPHRINE) REG ONE ×2 (08:52→09:30)
[2017-10-08] MEDS ORDERED: LIDOCAINE/EPI 1%-1:200,000 (XYLOCAINE) 10 ML VIAL ONE (08:52)
[2017-10-08] MEDS ORDERED: BSS 15 ML ONE (08:52)
[2017-10-08] MEDS ORDERED: COCAINE HCL 4% 2 ML SYR ONE (08:52)
[2017-10-08] MEDS ORDERED: LIDOCAINE/EPI 2% 1:200,00 (XYLOCAINE) 10 ML VIAL INJ ONE (09:30)
[2017-10-08] MEDS ORDERED: COCAINE HCL 4% 2 ML SYR TOP ONE (09:30)
[2017-10-08] MEDS ORDERED: MEPERIDINE (DEMEROL) INJ 50 MG/ML IVP PRN (09:30)
[2017-10-08] MEDS ORDERED: ONDANSETRON 4 MG/2 ML (SDV) Z0FRAN IVP PRN (09:30)
[2017-10-08] MEDS ORDERED: morphine INJ 10 MG/ML 1ML (SYR OR VIAL) IVP PRN (09:30)
[2017-10-08] MEDS ORDERED: GLYCOPYRROLATE 0.2 MG/ML (ROBINUL) 2 ML VIAL ONE ×2 (09:56→10:38)
[2017-10-08] MEDS ORDERED: NEOSTIGMINE 1 MG/ML 5 ML SYRINGE ONE (10:38)
[2017-10-08] MEDS ORDERED: D5 1/2 NS W/KCL 20 MEQ/L 1,000 ML IV SCH (10:39)
--- NOTE | 2017-10-08 10:39 | Progress Note-Post Operative ---
Post-Operative Progess Note Surgeon (s)/Communications Systems Engineer (s) Surgeon ANTONELLA LOYOLA MD Communications Systems Engineer n/a Pre-Operative Diagnosis Bilat Chronic Sinustis, Deviated septum, Bilat hyper of Inf Turbs Post-Operative Diagnosis same Post-Op Procedure Note Date of Procedure: Oct 08, 2017 Name of Procedure Performed: Bilat ESs, Septoplasty, Bilat Red of Inf Turbs Description & Findings Description and Findings: n/a Anesthesia Type get Estimated Blood Loss minimal Packing none. Specimen(s) collected/removed nasal septumn, bilat chronic Sinusitis ANTONELLA LOYOLA MD Oct 08, 2017 10:39 am
[2017-10-08] MEDS ORDERED: predniSONE 20 MG TAB PO ONE (10:45)
[2017-10-08] MEDS ORDERED: ACETAMINOPHEN 325 MG TABLET/CAPLET (TYLENOL) PO PRN (10:45)
[2017-10-08] MEDS ORDERED: PROMETHAZINE INJ 25 MG/ML (PHENERGAN) AMP IVP PRN (10:45)
[2017-10-08] MEDS ORDERED: HYDROcodone/APAP 5 MG/325 MG (LORTAB) TAB PO PRN (10:45)
[2017-10-08] MEDS ORDERED: SUGAMMADEX 100 MG/ML 5 ML (BRIDION) IV ONE (10:49)
[2017-10-08 12:00] VITALS: BP 126/88
[2017-10-08] MEDS ORDERED: HYDR-3812 PO (12:28)
[2017-10-08] MEDS ORDERED: PRD20T PO (12:28)
[2017-10-08] MEDS ORDERED: AMOX-355 PO (12:28)
[2017-10-08 12:30] VITALS: BP 125/81
--- NOTE | 2017-10-08 12:56 | Anesthesia-General Post-Op ---
General Patient Condition Mental Status/LOC: Same as Preop Cardiovascular: Satisfactory Nausea/Vomiting: Absent Respiratory: Satisfactory Pain: Controlled Complications: Absent Post Op Complications Complications None Follow Up Care/Instructions Patient Instructions None needed. Anesthesia/Patient Condition Patient Condition Patient is doing well, no complaints, stable vital signs, no apparent adverse anesthesia problems. No complications reported per nursing. D/C home per [facility] Criteria: No SHAKIR JUAREZ CRNA Oct 08, 2017 12:56
[2017-10-08 12:58] VITALS: BP 125/81
== END 2017-10-08 12:59 | disposition home or self-care (01) ==
LOC: SDC 07:44
PROVIDERS: ATTEND Otolaryngology Otolaryngology/Facial Plastic Surgery
DX: J32.2 Chronic ethmoidal sinusitis (principal); J34.2 Deviated nasal septum; J34.3 Hypertrophy of nasal turbinates
CPT/HCPCS: 88304

== ENCOUNTER → 2018-05-07 | Outpatient (CLI) | payer BC, OTHER ==
[~2018-05-07] MED LIST changes: +AMOX-355 PO; +HYDR-3812 PO; +PRD20T PO
--- NOTE | 2018-05-07 10:21 | Diagnostic Imaging Report ---
PROCEDURE: CT sinuses without contrast TECHNIQUE: Multiple contiguous axial images were obtained through the sinuses without the use of intravenous contrast. Coronal and sagittal reformations were then performed. INDICATION: Sinus pressure. COMPARISON: Correlation is made with prior sinus CT from 09/17/2017. FINDINGS: The frontal sinus is clear. Ethmoid air cells appear to be fairly clear. Patient has had partial ethmoidectomy since prior CT. Sphenoid is well-aerated. There is trace mucosal thickening of the right maxillary sinus. Patient has developed near complete opacification of the left maxillary sinus since prior exam. Mastoids are well aerated. Right ostiomeatal complex is unremarkable. There is fluid and thickening in the region of the left ostiomeatal complex. IMPRESSION: Post surgical changes of bilateral ethmoidectomy. The patient has developed near complete opacification of the left maxillary sinus consistent with sinusitis since prior CT from 09/17/2017. Dictated by: Dictated on workstation # [id number]
== END ==
LOC: RAD 09:32
PROVIDERS: ATTEND Nurse Practitioner Family
DX: R09.81 Nasal congestion (principal); Z98.890 Other specified postprocedural states
CPT/HCPCS: 70486

== ENCOUNTER 2018-05-18 05:34 | Outpatient (CLI) | payer BC ==
[~2018-05-18] VITALS: Ht 182.9 cm; Wt 104.9 kg
== END 2018-05-18 10:11 | disposition home or self-care (01) ==
LOC: PREOP 05:34
PROVIDERS: ATTEND Otolaryngology Otolaryngology/Facial Plastic Surgery
DX: Z01.818 Encounter for other preprocedural examination (principal)

== ENCOUNTER 2018-05-20 06:39 | Day surgery (SDC) | payer BC ==
[~2018-05-20] VITALS: Ht 182.9 cm; Wt 104.9 kg
--- OUTSIDE RECORDS SUMMARY | 2018-05-20 06:44 | XMS REPORT | Continuity of Care Document ---
Author Author [facility] Address Unknown Phone Unavailable Allergies Active Description Code Type Severity Reaction Onset Reported/Identified Relationship to Patient Clinical Status Yes No Known Drug Allergies [id number] Drug Allergy Unknown N/A 10/05/2017 Yes morphine [id number] Drug Allergy Moderate ITCHING AND HIV 10/08/2017 Medications There is no data. Problems Date [...] K 716.90 UNSPECIFIED ARTHROPATHY SITE UNSPECIFIED 12/25/2011 EARLENE SHULTZ APRN 716.90 UNSPECIFIED ARTHROPATHY SITE UNSPECIFIED 12/25/2011 SUNSHINE [...] OF HAIR AND HAIR FOLLICLES 06/18/2012 CARRINGTON CELLAR WORKERADRYANIA R 461.9 SINUSITIS ACUTE 06/18/2012 C[place] CELLAR WORKERADRYANIA R 466.0 BRONCHITIS, ACUTE 06/18/2012 CARRINGTON CELLAR WORKERORVILLEEARLENE R 704.8 OTHER SPECIFIED DISEASES OF HAIR AND HAIR FOLLICLES 06/18/2012 SUNSHINE DO, ARLENE K 461.9 SINUSITIS ACUTE 06/18/2012 SUNSHINE DO, ARLENE K 466.0 BRONCHITIS, ACUTE 06/18/2012 SUNSHINE DO, ARLENE K 704.8 OTHER SPECIFIED DISEASES OF HAIR AND HAIR FOLLICLES 06/18/2012 SUNSHINE DO, ARLENE K 461.9 SINUSITIS ACUTE 06/18/2012 SUNSHINE DO ARLENE K 466.0 BRONCHITIS, ACUTE 06/18/2012 SUNSHINE [...] OTHER MALAISE AND FATIGUE 05/09/2013 WHITE DDS, TAYE J V04.81 FLU SHOT 05/09/2013 WHITE DDS, [...] ALLERGY OTHER THAN TO MEDICINAL AGENTS 05/09/2013 EARLENE SHULTZ APRN R 780.79 OTHER MALAISE AND FATIGUE 05/09/2013 CARRINGTON CELLAR WORKERADRYANIA R V04.81 FLU SHOT 05/09/2013 [place] SHOOK EARLENE R V15.09 PERSONAL HISTORY OF OTHER ALLERGY [...] DO, ARLENE K 257.2 HYPOGONADISM 08/08/2013 SUNSHINE DO ARLENE K 461.9 SINUSITIS ACUTE 08/08/2013 SUNSIHNE DO, ARLENE K 782.1 RASH AND OTHER NONSPECIFIC SKIN ERUPTION 08/08/2013 SUNSHINE DO ARLENE K 461.9 SINUSITIS ACUTE 08/08/2013 SUNSHINE DO ARLENE K 782.1 RASH AND OTHER NONSPECIFIC [...] RASH AND OTHER NONSPECIFIC SKIN ERUPTION 08/08/2013 CARRINGTON CELLAR WORKER EARLENE R 461.9 SINUSITIS ACUTE 08/08/2013 [place]ARRINGTON CELLAR WORKER EARLENE R 782.1 RASH AND OTHER NONSPECIFIC [...] RASH AND OTHER NONSPECIFIC SKIN ERUPTION 12/27/2013 ORVILLE SHULTZ APRNRICIA R 477.9 ALLERGIC RHINITIS CAUSE UNSPECIFIED 12/27/2013 CARRINGTON CELLAR WORKERORVILLE ReinaEARLENE R 706.1 OTHER ACNE 12/27/2013 [place] SHULTZ APRNRICIA R V58.69 HIGH RISK MEDICATION 12/27/2013 SUNSHINE [...] ARLENE K V58.69 HIGH RISK MEDICATION 01/20/2014 JONG HANEY, ARLENE K 784.0 HEADACHE 01/20/2014 JONG HANEY, ARLENE K 784.0 HEADACHE 01/20/2014 SUNSHINE DO, ARLENE K 784.0 HEADACHE 06/20/2014 AMANDA OATES, CECILIA [...] OATES, ARASH A Ot V72.63 09/14/2014 WILBER OTAES, ARASH A Ot V74.8 06/30/2015 AMANDA OATES, [...] WILBER OATES, ARASH A Ot 185 08/20/2015 IWLBER OATES, ARASH A Ot V72.63 08/20/2015 WILBER [...] CECILIA R Ot M54.13 08/27/2015 AMANDA OATES, CECILIA R Ot 786.50 08/27/2015 WILBER OATES, ARASH A Ot 185 08/27/2015 WILBER OATES, ARASH A Ot 553.1 08/27/2015 WILBER OATES, ARASH A Ot 185 08/27/2015 WILBER OATES, ARASH A Ot V72.63 08/27/2015 WILBER OATES, ARASH A Ot V74.8 08/27/2015 AMANDA OATES, CECILIA R Ot M54.13 08/30/2015 AMANDA OATES, CECILIA R Ot 786.50 08/30/2015 WILBER OATES, ARASH A Ot 185 08/30/2015 WILBER OATES, RAASH A Ot 553.1 08/30/2015 WILBER OATES, ARASH A Ot 185 08/30/2015 WILBER OATES, ARASH A Ot V72.63 08/30/2015 WILBER OATES, ARASH A Ot V74.8 08/30/2015 AMANDA OATES, CECILIA R Ot M54.13 09/04/2015 AMANDA OATES, CECILIA R Ot M54.12 09/12/2015 AMANDA OATES, CECILIA R Ot M54.12 RADICULOPATHY, CERVICAL REGION 09/25/2015 AMANDA OATES, CECILIA R Ot M54.12 10/02/2015 AMANDA OATES, CECILIA R Ot M54.12 04/17/2017 CECILIA PATEL MD Ot M54.12 RADICULOPATHY, CERVICAL REGION 09/10/2017 CECILIA PATEL MD Ot 786.50 CHEST PAIN NOS 09/10/2017 ARASH MERINO MD Ot 185 MALIGN NEOPL PROSTATE 09/10/2017 ARASH MERINO MD Ot 553.1 UMBILICAL HERNIA 09/10/2017 ARASH MERINO MD Ot 185 MALIGN NEOPL PROSTATE 09/10/2017 ARASH MERINO MD Ot V72.63 PRE-PROCEDURAL LABORATORY EXAMINATION 09/10/2017 ARASH MERINO MD Ot V74.8 SCREEN-BACTERIAL DIS NEC 09/10/2017 CECILIA PATEL MD Ot M54.12 RADICULOPATHY, CERVICAL REGION 09/10/2017 CECILIA PATEL MD Ot M54.13 RADICULOPATHY, CERVICOTHORACIC REGION 09/10/2017 CECILIA PATEL MD Ot 786.50 CHEST PAIN NOS 09/10/2017 ARASH MERINO MD Ot 185 MALIGN NEOPL PROSTATE 09/10/2017 AARSH MERINO MD Ot 553.1 UMBILICAL HERNIA 09/10/2017 ARASH MERINO MD Ot 185 MALIGN NEOPL PROSTATE 09/10/2017 ARASH MERINO MD Ot V72.63 PRE-PROCEDURAL LABORATORY EXAMINATION 09/10/2017 ARASH MERINO MD Ot V74.8 SCREEN-BACTERIAL DIS NEC 09/10/2017 CECILIA PATEL MD Ot M54.12 RADICULOPATHY, CERVICAL REGION 09/10/2017 CECILIA PATEL MD Ot M54.13 RADICULOPATHY, CERVICOTHORACIC REGION 09/18/2017 ANTONELLA LOYOLA MD Ot J32.9 CHRONIC SINUSITIS, UNSPECIFIED 10/05/2017 ANTONELLA LOYOLA MD Ot J32.9 CHRONIC SINUSITIS, UNSPECIFIED 10/05/2017 ANTONELLA LOYOLA MD Ot 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 10/05/2017 ANTONELLA LOYOLA MD Ot 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 OF NASAL TURBINATES 10/05/2017 ANTONELLA LOYOLA MD Ot Z01.810 ENCOUNTER FOR PREPROCEDURAL CARDIOVASCUL 10/05/2017 ANTONELLA LOYOLA MD Ot Z01.812 ENCOUNTER FOR PREPROCEDURAL LABORATORY E 10/05/2017 ANTONELLA LOYOLA MD Ot Z11.2 ENCOUNTER FOR SCREENING FOR OTHER BACTER 10/05/2017 CECILIA PATEL MD R Ot 786.50 CHEST PAIN NOS 10/05/2017 WILBER OATES, ARASH Guidry Ot 185 MALIGN NEOPL PROSTATE 10/05/2017 WILBER OATES, ARASH Guidry Ot 553.1 UMBILICAL HERNIA 10/05/2017 WILBER OATES, ARASH Guidry Ot 185 MALIGN NEOPL PROSTATE 10/05/2017 WILBER OATES, ARASH Guidry Ot V72.63 PRE-PROCEDURAL LABORATORY EXAMINATION 10/05/2017 WILBER OATES, ARASH Guidry Ot V74.8 SCREEN-BACTERIAL DIS NEC 10/05/2017 CECILIA PATEL MD Ot M54.12 RADICULOPATHY, CERVICAL REGION 10/05/2017 CECILIA PATEL MD Ot M54.13 RADICULOPATHY, CERVICOTHORACIC REGION 10/05/2017 ANTONELLA LOYOLA MD Ot J32.9 CHRONIC SINUSITIS, UNSPECIFIED 10/07/2017 ANTONELLA OLYOLA MD Ot J32.9 CHRONIC SINUSITIS, UNSPECIFIED 10/07/2017 ANTONELLA LOYOLA MD Ot 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 10/07/2017 ANTONELLA LOYOLA MD Ot 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 OF NASAL TURBINATES 10/07/2017 ANTONELLA LOYOLA MD Ot Z01.810 ENCOUNTER FOR PREPROCEDURAL CARDIOVASCUL 10/07/2017 ANTONELLA LOYOLA MD Ot Z01.812 ENCOUNTER FOR PREPROCEDURAL LABORATORY E 10/07/2017 ANTONELLA LOYOLA MD Ot Z11.2 ENCOUNTER FOR SCREENING FOR OTHER BACTER 10/08/2017 ANTONELLA LOYOLA MD Ot J32.2 CHRONIC ETHMOIDAL SINUSITIS 10/08/2017 ANTONELLA LOYOLA MD Ot 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 10/08/2017 ANTONELLA LOYOLA MD Ot 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 OF NASAL TURBINATES 10/13/2017 ANTONELLA LOYOLA MD Ot J32.2 CHRONIC ETHMOIDAL SINUSITIS 10/13/2017 ANTONELLA LOYOLA MD Ot 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 10/13/2017 ANTONELLA LOYOLA MD Ot 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 OF NASAL TURBINATES 11/15/2017 CECILIA PATEL MD R Ot 786.50 CHEST PAIN NOS 11/15/2017 ARASH MERINO MD Ot 185 MALIGN NEOPL PROSTATE 11/15/2017 ARASH MERINO MD Ot 553.1 UMBILICAL HERNIA 11/15/2017 ARASH MERINO MD Ot 185 MALIGN NEOPL PROSTATE 11/15/2017 ARASH MERINO MD Ot V72.63 PRE-PROCEDURAL LABORATORY EXAMINATION 11/15/2017 ARASH MERINO MD Ot V74.8 SCREEN-BACTERIAL DIS NEC 11/15/2017 CECILIA PATEL MD R Ot M54.12 RADICULOPATHY, CERVICAL REGION 11/15/2017 CECILIA PATEL MD R Ot M54.13 RADICULOPATHY, CERVICOTHORACIC REGION 11/15/2017 MILLA OATES, ANTONELLA Dc Ot J32.9 CHRONIC SINUSITIS, UNSPECIFIED 05/05/2018 CECILIA PATEL MD Ot 786.50 CHEST PAIN NOS 05/05/2018 ARASH MERINO MD Ot 185 MALIGN NEOPL PROSTATE 05/05/2018 ARASH MERINO MD Ot 553.1 UMBILICAL HERNIA 05/05/2018 ARASH MERINO MD Ot 185 MALIGN NEOPL PROSTATE 05/05/2018 ARASH MERINO MD Ot V72.63 PRE-PROCEDURAL LABORATORY EXAMINATION 05/05/2018 ARASH MERINO MD Ot V74.8 SCREEN-BACTERIAL DIS NEC 05/05/2018 CECILIA PATEL MD R Ot M54.12 RADICULOPATHY, CERVICAL REGION 05/05/2018 CECILIA PATEL MD R Ot M54.13 RADICULOPATHY, CERVICOTHORACIC REGION 05/05/2018 MILLA OATES, ANTONELLA Dc Ot J32.9 CHRONIC SINUSITIS, UNSPECIFIED 05/10/2018 MOR, RADHA J TIMING ADJUSTER Ot R09.81 NASAL CONGESTION 05/10/2018 MOR, RADHA J TIMING ADJUSTER Ot Z98.890 OTHER SPECIFIED POSTPROCEDURAL STATES 05/13/2018 MOR, RADHA J TIMING ADJUSTER Ot R09.81 NASAL CONGESTION 05/13/2018 MOR, RADHA J TIMING ADJUSTER Ot Z98.890 OTHER SPECIFIED POSTPROCEDURAL STATES Procedures Code Description [place] [address] ROUTINE VENIPUNCTURE 05/11/2013 38711 TESTOSTERONE TOTAL 05/11/2013 41408 TSH 05/11/2013 76957 THERAPUTIC INJ SQ/IM 05/19/2013 97559 THERAPUTIC INJ SQ/IM 06/20/2013 J1070 TESTOSTERONE CYPIONAT 100 MG 06/20/2013 27492 THERAPUTIC INJ SQ/IM 07/25/2013 95935 TESTOSTERONE TOTAL 07/29/2013 93677 ROUTINE VENIPUNCTURE 07/29/2013 28212 THERAPUTIC INJ SQ/IM 08/29/2013 39251 THERAPUTIC INJ SQ/IM 09/26/2013 72862 THERAPUTIC INJ SQ/IM 10/27/2013 92609 THERAPUTIC INJ SQ/IM 12/07/2013 46746 ROUTINE VENIPUNCTURE 12/27/2013 TESTFTSBM TESTOSTERONE TOTAL,FREE, SHBG,BIOVAILABLE(MALES) 12/27/2013 21892 TESTOSTERONE TOTAL MALES 01/23/2014 29925 HIV ANTIBODIES (RML) 01/23/2014 13544 ROUTINE VENIPUNCTURE 01/23/2014 22208 CBC 01/23/2014 8106493 GFR CALC (RESULT ONLY) 01/23/2014 58897 CMP 01/23/2014 12600 THERAPUTIC INJ SQ/IM 01/25/2014 17.42 LAPAROSCOPIC ROBOTIC [...] Status Pt. Type Provider Facility Loc./Unit Complaint [id number] 03/03/2014 15:23:00 03/03/2014 23:59:59 [facility] Outpatient ARLENE SUNSHINE DO [id number] 01/25/2014 12:03:00 01/25/2014 23:59:59 [facility] Outpatient ARLENE SUNSHINE DO [id number] 01/23/2014 07:58:00 01/23/2014 23:59:59 CLS Outpatient SUNSHINE DOARLENE Sandra [id number] 12/27/2013 16:10:00 12/27/2013 23:59:59 CLS Outpatient EARLENE SHULTZ APRN [id number] 12/07/2013 13:02:00 12/07/2013 23:59:59 CLS Outpatient SUNSHINE DOTERRELLBrea Flores [id number] 10/27/2013 12:12:00 10/27/2013 23:59:59 CLS Outpatient SUNSHINE DO ARLENE Flores [id number] 09/26/2013 17:14:00 09/26/2013 23:59:59 CLS Outpatient SUNSHINE DO ARLENE Flores [id number] 08/29/2013 17:01:00 08/29/2013 23:59:59 CLS Outpatient SUNSHINE DO ARLENE Flores [id number] 08/08/2013 10:24:00 08/08/2013 23:59:59 CLS Outpatient SUNSHINE DO ARLENE Flores [id number] 07/29/2013 07:59:00 07/29/2013 23:59:59 CLS Outpatient ELIDA HERRERA PA-C [id number] 07/25/2013 17:10:00 07/25/2013 23:59:59 CLS Outpatient SUNSHINE DO ARLENE Flores [id number] 07/13/2013 11:57:00 07/13/2013 23:59:59 CLS Outpatient TAYE CEE DDS [id number] 06/20/2013 14:23:00 06/20/2013 23:59:59 CLS Outpatient SUNSHINE DO ARLENE Flores [id number] 05/19/2013 15:54:00 05/19/2013 23:59:59 CLS Outpatient SUNSHINE DOARLENE [id number] 05/11/2013 08:54:00 05/11/2013 23:59:59 CLS Outpatient SUNSHINE DOARLENE [id number] 05/09/2013 13:54:00 05/09/2013 23:59:59 CLS Outpatient SUNSHINE DOARLENE [id number] 06/18/2012 15:37:00 06/18/2012 23:59:59 CLS Outpatient [id number] 05/18/2018 05:34:00 05/18/2018 10:11:00 DIS Outpatient MILLA OATES, ANTONELLA Fournier [facility] [address] PREOP REVISION LEFT ENDOSCOPIC SINUS [id number] 05/07/2018 09:32:00 05/07/2018 23:59:59 CLS Outpatient RADHA JUARES [facility] [address] RAD NASAL CONGESTION [id number] 10/08/2017 07:44:00 10/08/2017 12:59:00 DIS Outpatient ANTONELLA LOYOLA MD [facility] [address] SDC DEVIATED SEPTUM,CHRONIC SINUSITIS [id number] 10/05/2017 12:51:00 10/05/2017 15:00:00 DIS Outpatient ANTONELLA LOYOLA MD [facility] [address] PREOP DEVIATED SEPTUM, CHRONIC SINUSITIS [id number] 09/17/2017 09:10:00 09/17/2017 23:59:59 CLS Outpatient ANTONELLA LOYOLA MD [facility] [address] RAD CHRONIC SINUSITIS [id number] 09/06/2015 10:45:00 09/12/2015 13:29:00 DIS Outpatient CECILIA PATEL MD [facility] [address] REHAB CERVICAL RADICULOPATHY [id number] 08/29/2015 12:23:00 08/29/2015 23:59:59 CLS Outpatient CECILIA PATEL MD [facility] [address] RAD RADICULOPATHY [id number] 08/20/2015 15:38:00 08/20/2015 23:59:59 CLS Outpatient CECILIA PATEL MD [facility] [address] LAB RADICULOPATHY [id number] 08/23/2014 06:00:00 08/24/2014 14:15:00 DIS Inpatient ARASH MERINO MD [facility] [address] SURGICAL PROSTATE CANCER [id number] 08/17/2014 09:59:00 08/17/2014 23:59:59 CLS Outpatient ARASH MERINO MD [facility] [address] PREOP PROSTATE CANCER [id number] 06/15/2014 12:05:00 06/15/2014 23:59:59 CLS Outpatient ARASH MERINO MD Via [facility] [address] CARD PROSTATE CA [id number] 05/23/2014 07:15:00 05/23/2014 23:59:59 CLS Outpatient AMANDA OATES CECILIA Hopper [facility] [address] CARD CP [id number] 05/20/2018 11:15:00 PEN Preadmit MILLA OATES, ANTONELLA Dc [facility] [address] SDC LEFT MAXILLARY SINUSITIS
[2018-05-20 07:00] VITALS: BP 119/82
[2018-05-20] MEDS: LACTATED RINGERS 1,000 ML IV PRN ×2 (07:17→10:15)
[2018-05-20] MEDS ORDERED: COCAINE HCL 4% 2 ML SYR ONE (07:20)
[2018-05-20] MEDS ORDERED: PHENYLEPHRINE 0.5% NASAL SPR (NEO-SYNEPHRINE) REG ONE (07:20)
[2018-05-20] MEDS ORDERED: BSS 15 ML ONE (07:20)
[2018-05-20] MEDS ORDERED: LIDOCAINE/EPI 1%-1:200,000 (XYLOCAINE) 10 ML VIAL ONE (07:20)
[2018-05-20] MEDS ORDERED: SEVOFLURANE (ULTANE) 15 ML INHAL SOLN ONE ×2 (07:22→09:02)
[2018-05-20] MEDS ORDERED: DEXAMETHASONE 10 MG/ML (DECADRON) 1 ML VIAL ONE (07:22)
[2018-05-20] MEDS ORDERED: ONDANSETRON 4 MG/2 ML (SDV) Z0FRAN ONE (07:22)
[2018-05-20] MEDS ORDERED: proPOfol 200 MG/20 ML (DIPRIVAN) VIAL IV ONE (07:22)
[2018-05-20] MEDS ORDERED: LIDOCAINE PF 2% 5 ML (XYLOCAINE) VIAL ONE (07:22)
[2018-05-20] MEDS ORDERED: ROCURONIUM 10 MG/ML 5 ML SYRINGE IV ONE (07:22)
[2018-05-20] MEDS ORDERED: MIDAZOLAM 2 MG/2 ML (VERSED) VIAL ONE (07:23)
[2018-05-20] MEDS ORDERED: fentaNYL INJECTION 100 MCG/2 ML AMP ONE (07:23)
[2018-05-20 07:27] LABS: BASOPHILS % (AUTO) 1 % (0-10); EOSINOPHILS # (AUTO) 0.2 10^3/uL (0.0-0.3); EOSINOPHILS % (AUTO) 3 % (0-10); HEMATOCRIT 42 % (40-54); HEMOGLOBIN 14.2 G/DL (13.3-17.7); LYMPHOCYTES # (AUTO) 1.2 X 10^3 (1.0-4.0); LYMPHOCYTES % (AUTO) 24 % (12-44); MEAN CORPUSCULAR HEMOGLOBIN 32 PG (25-34); MEAN CORPUSCULAR HGB CONC 34 G/DL (32-36); MEAN CORPUSCULAR VOLUME 96 FL (80-99); MEAN PLATELET VOLUME 8.5 FL (7.4-10.4); MONOCYTES # (AUTO) 0.4 X 10^3 (0.0-1.0); MONOCYTES % (AUTO) 9 % (0-12); NEUTROPHILS # (AUTO) 3.2 X 10^3 (1.8-7.8); NEUTROPHILS % (AUTO) 63 % (42-75); PLATELET COUNT 227 10^3/uL (130-400); RED BLOOD COUNT 4.39 10^6/uL (4.35-5.85); WHITE BLOOD COUNT 5.1 10^3/uL (4.3-11.0)
[2018-05-20] MEDS ORDERED: CLINDAMYCIN 600 MG/50 ML IVPB 50 ML IV ONE (07:30)
[2018-05-20 07:41] LABS: BUN/CREATININE RATIO 14; CALCIUM 9.3 MG/DL (8.5-10.1); CARBON DIOXIDE 23 MMOL/L (21-32); CHLORIDE 107 MMOL/L (98-107); CREATININE SERUM 0.96 MG/DL (0.60-1.30); GFR ESTIMATED > 60; GLUCOSE 99 MG/DL (70-105); POTASSIUM 4.1 MMOL/L (3.6-5.0); SODIUM 140 MMOL/L (135-145)
--- NOTE | 2018-05-20 07:50 | Progress Note-Pre Operative ---
Pre-Operative Progress Note H&P Reviewed The H&P was reviewed, patient examined and no changes noted. Date Seen by Provider: May 20, 2018 Time Seen by Provider: 07:00 Date H&P Reviewed: May 20, 2018 Time H&P Reviewed: 07:00 Pre-Operative Diagnosis: Recurrent Left Maxillary Sinusitis ANTONLELA LOYOLA MD May 20, 2018 7:50 am
[2018-05-20] MEDS ORDERED: NEOSTIGMINE 1 MG/ML 5 ML SYRINGE ONE (08:42)
[2018-05-20] MEDS ORDERED: HYDROcodone/APAP 5 MG/325 MG (LORTAB) TAB PO PRN (08:45)
[2018-05-20] MEDS ORDERED: PROMETHAZINE INJ 25 MG/ML (PHENERGAN) AMP IVP PRN (08:45)
[2018-05-20] MEDS ORDERED: D5 1/2 NS W/KCL 20 MEQ/L 1,000 ML IV SCH (08:45)
[2018-05-20] MEDS ORDERED: ACETAMINOPHEN 325 MG TABLET PO PRN (08:45)
--- NOTE | 2018-05-20 08:45 | Progress Note-Post Operative ---
Post-Operative Progess Note Surgeon (s)/[place] Hand (s) Surgeon ANTONELLA LOYOLA MD [place] [employer] n/a Pre-Operative Diagnosis Recurrent Left Maxillary Sinusitis Post-Operative Diagnosis same Post-Op Procedure Note Date of Procedure: May 20, 2018 Name of Procedure Performed: Revision of Left Maxillary Sinus with REmoval of Disease Description & Findings Description and Findings: n/a Anesthesia Type get Estimated Blood Loss minimal Packing none. Specimen(s) collected/removed left max sinus disesae aerobic anaerobic and fungal cultures-left maxillary sinus ANTONELLA LOYOLA MD May 20, 2018 8:45 am
[2018-05-20] MEDS ORDERED: ONDANSETRON 4 MG/2 ML (SDV) Z0FRAN IVP PRN (09:00)
[2018-05-20] MEDS ORDERED: HYDROmorphone 2 MG/ML VIAL (DILAUDID) IV ONE (09:00)
[2018-05-20] MEDS ORDERED: fentaNYL INJECTION 100 MCG/2 ML AMP IVP ONE (09:00)
[2018-05-20 09:40] VITALS: BP 114/77
[2018-05-20] MEDS ORDERED: HYDR-3812 PO (09:51)
[2018-05-20] MEDS ORDERED: CLIN300C3 PO (09:51)
[2018-05-20 10:10] VITALS: BP 115/81
[2018-05-20 10:40] VITALS: BP 115/84
--- NOTE | 2018-05-20 18:30 | Anesthesia-General Post-Op ---
General Patient Condition Mental Status/LOC: Same as Preop Cardiovascular: Satisfactory Nausea/Vomiting: Absent Respiratory: Satisfactory Pain: Controlled Complications: Absent Post Op Complications Complications None Follow Up Care/Instructions Patient Instructions None needed. Anesthesia/Patient Condition Patient Condition Patient was seen after the procedure and he was doing well, no complaints, stable vital signs, no apparent adverse anesthesia problems. COURT DE LEON DO May 20, 2018 18:30
== END 2018-05-20 10:37 | disposition home or self-care (01) ==
LOC: SDC 06:39
PROVIDERS: ATTEND Otolaryngology Otolaryngology/Facial Plastic Surgery
DX: J32.0 Chronic maxillary sinusitis (principal); Z11.2 Encounter for screening for other bacterial diseases; J30.9 Allergic rhinitis, unspecified; Z85.46 Personal history of malignant neoplasm of prostate
CPT/HCPCS: 36415; 80048; 85025; 87070; 87075; 87077; 87081; 87101; 87186; 87205

== ENCOUNTER 2018-07-09 10:00 | Outpatient (CLI) | payer BC ==
[~2018-07-09] VITALS: Ht 182.9 cm; Wt 104.9 kg
[~2018-07-09 10:00] MED LIST changes: +CLIN300C3 PO; +DOXY100T2 PO; +FEXO1TAB43 PO
== END 2018-07-09 10:17 | disposition home or self-care (01) ==
LOC: PREOP 10:00
PROVIDERS: ATTEND Surgery
DX: Z01.818 Encounter for other preprocedural examination (principal)

== ENCOUNTER 2018-07-12 11:04 | Day surgery (SDC) | payer BC ==
[~2018-07-12] VITALS: Ht 182.9 cm; Wt 104.9 kg
[2018-07-12] MEDS ORDERED: LACTATED RINGERS 1,000 ML IV ONE (11:05)
[2018-07-12] MEDS ORDERED: LACTATED RINGERS 1,000 ML IV STA (11:07)
--- OUTSIDE RECORDS SUMMARY | 2018-07-12 11:08 | XMS REPORT | Continuity of Care Document ---
Author Author Formerly [facility] Address Unknown Phone Unavailable Allergies Active Description Code Type Severity Reaction Onset Reported/Identified Relationship to Patient Clinical Status Yes No Known Drug Allergies [id number] Drug Allergy Unknown N/A 10/05/2017 Yes morphine [id number] Drug Allergy Moderate ITCHING AND HIV 10/08/2017 [...] K 461.9 SINUSITIS ACUTE 06/18/2012 SUNSHINE DO, RALENE K 466.0 BRONCHITIS, ACUTE 06/18/2012 SUNSHINE DO, [...] OF HAIR AND HAIR FOLLICLES 06/18/2012 CARRINGTON SUPERINTENDENT PIERADRYANIA R 461.9 SINUSITIS ACUTE 06/18/2012 CARRINGTON SUPERINTENDENT PIERADRYANIA R 466.0 BRONCHITIS, ACUTE 06/18/2012 CARRINGTON SUPERINTENDENT PIERORVILLEEARLENE R 704.8 OTHER SPECIFIED DISEASES OF HAIR [...] ALLERGY OTHER THAN TO MEDICINAL AGENTS 05/09/2013 JAVIRE GILBERT, ELIDA Calixto 780.79 OTHER MALAISE AND [...] 780.79 OTHER MALAISE AND FATIGUE 05/09/2013 CARRINGTON SUPERINTENDENT PIERADRYANIA R V04.81 FLU SHOT 05/09/2013 CARRINGTON SHOOK [...] K 780.79 OTHER MALAISE AND FATIGUE 05/09/2013 SUNSHIEN DO, ARLENE K V04.81 FLU SHOT 05/09/2013 [...] AND OTHER NONSPECIFIC SKIN ERUPTION 08/08/2013 CARRINGTON SUPERINTENDENT PIER EARLENE R 461.9 SINUSITIS ACUTE 08/08/2013 CARRINGTON SUPERINTENDENT PIER EARLENE R 782.1 RASH AND OTHER NONSPECIFIC [...] 477.9 ALLERGIC RHINITIS CAUSE UNSPECIFIED 12/27/2013 CARRINGTON SUPERINTENDENT [place] ReinaEARLENE R 706.1 OTHER ACNE 12/27/2013 [place] [...] OATES, CECILIA R Ot 786.50 08/23/2014 WILBER OATSE, ARASH A Ot 185 08/23/2014 WILBER OATES, [...] OATES, CECILIA R Ot M54.12 04/17/2017 CECILIA PAETL MD Ot M54.12 RADICULOPATHY, CERVICAL REGION 09/10/2017 [...] Ot 185 MALIGN NEOPL PROSTATE 09/10/2017 ARASH EMRINO MD Ot 553.1 UMBILICAL HERNIA 09/10/2017 ARASH MERINO MD Ot 185 MALIGN NEOPL PROSTATE 09/10/2017 ARAHS MERINO MD Ot V72.63 PRE-PROCEDURAL LABORATORY EXAMINATION [...] SINUSITIS, UNSPECIFIED 10/07/2017 ANTONELLA LOYOLA MD Ot J32.9 CHRONIC SINUSITIS, [...] R Ot M54.13 RADICULOPATHY, CERVICOTHORACIC REGION 11/15/2017 ANTONELLA LOYOLA MD Ot J32.9 CHRONIC SINUSITIS, UNSPECIFIED 05/05/2018 CECILIA [...] CHRONIC SINUSITIS, UNSPECIFIED 05/10/2018 MOR, RADHA J OCCUPATIONAL HEALTH COORDINATOR Ot R09.81 NASAL CONGESTION 05/10/2018 MOR, RADHA J OCCUPATIONAL HEALTH COORDINATOR Ot Z98.890 OTHER SPECIFIED POSTPROCEDURAL STATES 05/13/2018 MOR, RADHA J OCCUPATIONAL HEALTH COORDINATOR Ot R09.81 NASAL CONGESTION 05/13/2018 MOR, RADHA J OCCUPATIONAL HEALTH COORDINATOR Ot Z98.890 OTHER SPECIFIED POSTPROCEDURAL STATES 05/18/2018 MILLA OATES, ANTONELLA Dc Ot Z01.818 ENCOUNTER FOR OTHER PREPROCEDURAL EXAMIN 05/20/2018 AMANDA OATES, CECILIA Hopper Ot 786.50 CHEST PAIN NOS 05/20/2018 ARASH MERINO MD Ot 185 MALIGN NEOPL PROSTATE 05/20/2018 ARASH MERINO MD Ot 553.1 UMBILICAL HERNIA 05/20/2018 ARASH MERINO MD Ot 185 MALIGN NEOPL PROSTATE 05/20/2018 ARASH MERION MD Ot V72.63 PRE-PROCEDURAL LABORATORY EXAMINATION 05/20/2018 ARASH MERINO MD Ot V74.8 SCREEN-BACTERIAL DIS NEC 05/20/2018 CECILIA PATEL MD Ot M54.12 RADICULOPATHY, CERVICAL REGION 05/20/2018 CECILIA PATEL MD Ot M54.13 RADICULOPATHY, CERVICOTHORACIC REGION 05/20/2018 ANTONELLA LOYOLA MD Ot J32.9 CHRONIC SINUSITIS, UNSPECIFIED 05/20/2018 MOR, RADHA J OCCUPATIONAL HEALTH COORDINATOR Ot R09.81 NASAL CONGESTION 05/20/2018 MOR, RADHA J OCCUPATIONAL HEALTH COORDINATOR Ot Z98.890 OTHER SPECIFIED POSTPROCEDURAL STATES 05/20/2018 MOR RADHA Stacey OCCUPATIONAL HEALTH COORDINATOR Ot R09.81 NASAL CONGESTION 05/20/2018 MOR, RADHA Stacey OCCUPATIONAL HEALTH COORDINATOR Ot Z98.890 OTHER SPECIFIED POSTPROCEDURAL STATES 05/20/2018 ANTONELLA LOYOLA MD Ot J30.9 ALLERGIC RHINITIS, UNSPECIFIED 05/20/2018 ANTONELLA LOYOLA MD Ot J32.0 CHRONIC MAXILLARY SINUSITIS 05/20/2018 ANTONELLA LOYOLA MD Ot Z11.2 ENCOUNTER FOR SCREENING FOR OTHER BACTER 05/20/2018 ANTONELLA LOYOLA MD Ot Z85.46 PERSONAL HISTORY OF MALIGNANT NEOPLASM O 05/24/2018 ANTONELLA LOYOLA MD Ot J30.9 ALLERGIC RHINITIS, UNSPECIFIED 05/24/2018 ANTONELLA LOYOLA MD Ot J32.0 CHRONIC MAXILLARY SINUSITIS 05/24/2018 ANTONELLA LOYOLA MD Ot Z11.2 ENCOUNTER FOR SCREENING FOR OTHER BACTER 05/24/2018 ANTONELLA LOYOLA MD Ot Z85.46 PERSONAL HISTORY OF MALIGNANT NEOPLASM O Procedures Code Description [place] [address] ROUTINE VENIPUNCTURE 05/11/2013 93515 TESTOSTERONE TOTAL 05/11/2013 42676 TSH 05/11/2013 88007 THERAPUTIC INJ SQ/IM 05/19/2013 23982 THERAPUTIC INJ SQ/IM 06/20/2013 J1070 TESTOSTERONE CYPIONAT 100 MG 06/20/2013 83579 THERAPUTIC INJ SQ/IM 07/25/2013 43693 TESTOSTERONE TOTAL 07/29/2013 63122 ROUTINE VENIPUNCTURE 07/29/2013 52123 THERAPUTIC INJ SQ/IM 08/29/2013 60215 THERAPUTIC INJ SQ/IM 09/26/2013 87126 THERAPUTIC INJ SQ/IM 10/27/2013 90379 THERAPUTIC INJ SQ/IM 12/07/2013 70892 ROUTINE VENIPUNCTURE 12/27/2013 TESTFTSBM TESTOSTERONE TOTAL,FREE, SHBG,BIOVAILABLE(MALES) 12/27/2013 47916 TESTOSTERONE TOTAL MALES 01/23/2014 93335 HIV ANTIBODIES (RML) 01/23/2014 09293 ROUTINE VENIPUNCTURE 01/23/2014 45542 CBC 01/23/2014 0289647 GFR CALC (RESULT ONLY) 01/23/2014 76509 CMP 01/23/2014 31108 THERAPUTIC INJ SQ/IM 01/25/2014 17.42 LAPAROSCOPIC ROBOTIC [...] plasma calcium measurement (mass/volume) 9.4 mg/dL 8.5-10.1 Complete blood count (CBC) with automated white blood cell (WBC) differential - 05/20/18 07:17 Blood leukocytes automated count (number/volume) 5.1 10*3/uL 4.3-11.0 Blood erythrocytes automated count (number/volume) 4.39 10*6/uL 4.35-5.85 Venous blood hemoglobin measurement (mass/volume) 14.2 g/dL 13.3-17.7 Blood hematocrit (volume fraction) 42 % 40-54 Automated erythrocyte mean corpuscular volume 96 [foz_us] 80-99 Automated erythrocyte mean corpuscular hemoglobin (mass per erythrocyte) 32 pg 25-34 Automated erythrocyte mean corpuscular hemoglobin concentration measurement ( mass/volume) 34 g/dL 32-36 Automated erythrocyte distribution width ratio 12.0 % 10.0-14.5 Automated blood platelet count (count/volume) 227 10*3/uL 130-400 Automated blood platelet mean volume measurement 8.5 [foz_us] 7.4-10.4 Automated blood neutrophils/100 leukocytes 63 % 42-75 Automated blood lymphocytes/100 leukocytes 24 % 12-44 Blood monocytes/100 leukocytes 9 % 0-12 Automated blood eosinophils/100 leukocytes 3 % 0-10 Automated blood basophils/100 leukocytes 1 % 0-10 Blood neutrophils automated count (number/volume) 3.2 10*3 1.8-7.8 Blood lymphocytes automated count (number/volume) 1.2 10*3 1.0-4.0 Blood monocytes automated count (number/volume) 0.4 10*3 0.0-1.0 Automated eosinophil count 0.2 10*3/uL 0.0-0.3 Automated blood basophil count (count/volume) 0.0 10*3/uL 0.0-0.1 Whole blood basic metabolic panel - 05/20/18 07:17 Serum or plasma sodium measurement (moles/volume) 140 mmol/L 135-145 Serum or plasma potassium measurement (moles/volume) 4.1 mmol/L 3.6-5.0 Serum or plasma chloride measurement (moles/volume) 107 mmol/L 98-107 Carbon dioxide 23 mmol/L 21-32 Serum or plasma anion gap determination (moles/volume) 10 mmol/L 5-14 Serum or plasma urea nitrogen measurement (mass/volume) 13 mg/dL 7-18 Serum or plasma creatinine measurement (mass/volume) 0.96 mg/dL 0.60-1.30 Serum or plasma urea nitrogen/creatinine mass ratio 14 NRG Serum or plasma creatinine measurement with calculation of estimated glomerular filtration rate > NRG Serum or plasma glucose measurement (mass/volume) 99 mg/dL 70-105 Serum or plasma calcium measurement (mass/volume) 9.3 mg/dL 8.5-10.1 Methicillin resistant Staphylococcus aureus (MRSA) screening culture - 07:17 Methicillin resistant Staphylococcus aureus (MRSA) screening culture NEG NRG Bacteria identification in isolate by anaerobe culture - 05/20/18 08:26 Bacteria identification in isolate by anaerobe culture NOANA NRG Gram stain microscopy - 05/20/18 08:26 Gram stain microscopy REPORTED 05-21-18604. NRG Bacteria identification in wound by culture - 05/20/18 08:26 Bacteria identification in wound by culture [id number] NRG FREE TEXT EXTERNAL SENSITIVITY REPORTED 05/23/18 15:05 NRG QUANTITY OF GROWTH Moderate Growth NRG RML Sensitivity Panel - 05/20/18 08:26 Gentamicin susceptibility test by minimum inhibitory concentration 4 NRG Levofloxacin susceptibility test by minimum inhibitory concentration 4 NRG Tobramycin susceptibility test by minimum inhibitory concentration S NRG Piperacillin/tazobactam susceptibility test by minimum inhibitory concentration = NRG Ciprofloxacin susceptibility test by minimum inhibitory concentration 1 NRG Meropenem susceptibility test by minimum inhibitory concentration 1 NRG Aztreonam susceptibility test by minimum inhibitory concentration 8 NRG Cefepime susceptibility test by minimum inhibitory concentration 16 NRG Imipenem susceptibility test by minimum inhibitory concentration S NRG Ceftazidime susceptibility test by minimum inhibitory concentration 4 NRG RML Sensitivity Panel - 05/20/18 08:26 Gentamicin susceptibility test by minimum inhibitory concentration < = NRG Levofloxacin susceptibility test by minimum inhibitory concentration > NRG Tobramycin susceptibility test by minimum inhibitory concentration S NRG Piperacillin/tazobactam susceptibility test by minimum inhibitory concentration = NRG Ciprofloxacin susceptibility test by minimum inhibitory concentration > NRG Meropenem susceptibility test by minimum inhibitory concentration 0.5 NRG Aztreonam susceptibility test by minimum inhibitory concentration 4 NRG Cefepime susceptibility test by minimum inhibitory concentration 8 NRG Imipenem susceptibility test by minimum inhibitory concentration S NRG Ceftazidime susceptibility test by minimum inhibitory concentration <= NRG C FUNGUS SPUTUM FLUID TISSUE - 05/20/18 08:27 FUNGUS REPORT NO FUNGUS GROWTH OBSERVED NRG Encounters ACCT No. Visit Date/Time Discharge Status Pt. Type Provider Facility Loc./Unit Complaint [id number] 03/03/2014 15:23:00 03/03/2014 23:59:59 CLS Outpatient ARLENE SUNSHINE DO [id number] 01/25/2014 12:03:00 01/25/2014 23:59:59 CLS Outpatient ARLENE SUNSHINE DO [id number] 01/23/2014 07:58:00 01/23/2014 23:59:59 CLS Outpatient SUNSHINE DOARLENE Sandra [id number] 12/27/2013 16:10:00 12/27/2013 23:59:59 CLS Outpatient EARLENE SHULTZ APRN [id number] 12/07/2013 13:02:00 12/07/2013 23:59:59 CLS Outpatient SUNSHINE DOARLENE Sandra [id number] 10/27/2013 12:12:00 10/27/2013 23:59:59 CLS Outpatient SUNSHINE DO ARLENE Flores [id number] 09/26/2013 17:14:00 09/26/2013 23:59:59 CLS Outpatient SUNSHINE DO ARLENE Flores [id number] 08/29/2013 17:01:00 08/29/2013 23:59:59 CLS Outpatient SUNSHINE DO ARLENE Flores [id number] 08/08/2013 10:24:00 08/08/2013 23:59:59 CLS Outpatient SUNSHINE DO ARLENE Flores [id number] 07/29/2013 07:59:00 07/29/2013 23:59:59 CLS Outpatient ELIDA HERRERA PA-C [id number] 07/25/2013 17:10:00 07/25/2013 23:59:59 CLS Outpatient SUNSHINE DO ARLENE Flores [id number] 07/13/2013 11:57:00 07/13/2013 23:59:59 CLS Outpatient TAYE CEE DDS [id number] 06/20/2013 14:23:00 06/20/2013 23:59:59 CLS Outpatient SUNSHINE DO ARLENE Flores [id number] 05/19/2013 15:54:00 05/19/2013 23:59:59 CLS Outpatient SUNSHINE DO ARLENE Flores [id number] 05/11/2013 08:54:00 05/11/2013 23:59:59 CLS Outpatient SUNSHINE DO ARLENE Flores [id number] 05/09/2013 13:54:00 05/09/2013 23:59:59 CLS Outpatient SUNSHINE DOARLENE [id number] 06/18/2012 15:37:00 06/18/2012 23:59:59 CLS Outpatient [id number] 07/08/2018 06:34:00 07/08/2018 23:59:59 CLS Outpatient TALYA HEREDIA DO [facility] PREOP COLONOSCOPY [id number] 06/04/2018 13:45:00 06/04/2018 23:59:59 CLS Outpatient ANTONELLA LOYOLA MD [facility] SINUS INFECTION [id number] 05/20/2018 06:39:00 05/20/2018 10:37:00 DIS Outpatient ANTONELLA LOYOLA MD [facility] LEFT MAXILLARY SINUSITIS [id number] 05/18/2018 05:34:00 05/18/2018 10:11:00 DIS Outpatient ANTONELLA LOYOLA MD [facility] PREOP REVISION LEFT ENDOSCOPIC SINUS [id number] 05/07/2018 09:32:00 05/07/2018 23:59:59 CLS Outpatient RADHA JUARES [facility] RAD NASAL CONGESTION [id number] 10/08/2017 07:44:00 10/08/2017 12:59:00 DIS Outpatient ANTONELLA LOYOLA MD [facility] DEVIATED SEPTUM,CHRONIC SINUSITIS [id number] 10/05/2017 12:51:00 10/05/2017 15:00:00 DIS Outpatient ANTONELLA LOYOLA MD [facility] PREOP DEVIATED SEPTUM, CHRONIC SINUSITIS [id number] 09/17/2017 09:10:00 09/17/2017 23:59:59 CLS Outpatient ANTONELLA LOYOLA MD [facility] RAD CHRONIC SINUSITIS [id number] 09/06/2015 10:45:00 09/12/2015 13:29:00 DIS Outpatient CECIILA PATEL MD [facility] REHAB CERVICAL RADICULOPATHY [id number] 08/29/2015 12:23:00 08/29/2015 23:59:59 CLS Outpatient CECILIA PATEL MD [facility] RAD RADICULOPATHY [id number] 08/20/2015 15:38:00 08/20/2015 23:59:59 CLS Outpatient CECILIA PATEL MD [facility] LAB RADICULOPATHY [id number] 08/23/2014 06:00:00 08/24/2014 14:15:00 DIS Inpatient ARASH MERINO MD [facility] SURGICAL PROSTATE CANCER [id number] 08/17/2014 09:59:00 08/17/2014 23:59:59 CLS Outpatient RAASH MERINO MD [facility] PREOP PROSTATE CANCER [id number] 06/15/2014 12:05:00 06/15/2014 23:59:59 CLS Outpatient ARASH MERINO MD [facility] CARD PROSTATE CA [id number] 05/23/2014 07:15:00 05/23/2014 23:59:59 CLS Outpatient AMANDA OATES, CECILIA Hopper [facility] CARD CP [id number] 07/12/2018 13:00:00 PEN Preadmit TALYA HEREDIA DO [facility] ENDO SCREENING
[2018-07-12 11:32] VITALS: BP 122/74
[2018-07-12] MEDS ORDERED: PROPOFOL INJECTION 50 ML IV ONE (11:32)
[2018-07-12] MEDS ORDERED: MIDAZOLAM 2 MG/2 ML (VERSED) VIAL ONE (11:33)
[2018-07-12 12:20] VITALS: BP 109/70
--- NOTE | 2018-07-12 12:38 | Progress Note-Post Operative ---
Post-Operative Progess Note Surgeon (s)/Marketing Administrator (s) Surgeon TALYA HEREDIA DO Marketing Administrator: DENIZ Mccormick Pre-Operative Diagnosis Screening colonoscopy Post-Operative Diagnosis Cecal Polyp Int hemorrhoids Procedure & Operative Findings Date of Procedure 07/12/18 Procedure Performed/Findings Colon with cold bx Anesthesia Type IV sedation by ORTHODONTIC LAB TECHNICIAN Estimated Blood Loss Estimated blood loss (mL): scant Specimens/Packing Specimens Removed cecal polyp TALYA HEREDIA DO Jul 12, 2018 12:38
--- NOTE | 2018-07-12 12:40 | Progress Note-Pre Operative ---
Pre-Operative Progress Note H&P Reviewed The H&P was reviewed, patient examined and no changes noted. Time Seen by Provider: 11:17 Date H&P Reviewed: Jul 12, 2018 Time H&P Reviewed: 11:19 Pre-Operative Diagnosis: screening colonoscopy TALYA HEREDIA DO Jul 12, 2018 12:40
--- NOTE | 2018-07-12 12:41 | Endoscopy Discharge Instruct ---
Endo Procedure/Findings Findings 1.: Polyp 2.: Internal Hemorrhoids Discharge Instructions - Activity: You might feel a little sleepy until tomorrow. This is due to the medicine you received to relax you. Until tomorrow, you should: NOT drive a car, operate machinery or power tools. NOT drink any alcoholic beverages. NOT make any important decisions or sign importortant papers. Do not return to work until tomorrow, unless otherwise instructed. Resume previous activities tomorrow. Diet: Start by taking liquids. If you tolerate liquids, advance to solid food. make an appointment for one week Notify Physician - If you experience excessive bleeding, unusual abdominal pain, fever, or chest pain, contact your doctor immediately. Follow-Up: - I have received and understand the above instructions and will call my doctor if I have any further questions. Patient Signature Date Nurse Signature Other (Relationship) TALYA HEREDIA DO Jul 12, 2018 12:41
[2018-07-12 12:50] VITALS: BP 124/80
[2018-07-12 12:59] VITALS: BP 124/80
--- NOTE | 2018-07-12 13:32 | Anesthesia-General Post-Op ---
MAC Patient Condition Mental Status/LOC: Same as Preop Cardiovascular: Satisfactory Nausea/Vomiting: Absent Respiratory: Satisfactory Pain: Controlled Complications: Absent Post Op Complications Complications None Follow Up Care/Instructions Patient Instructions None needed. Anesthesiology Discharge Order Discharge Order Patient is doing well, no complaints, stable vital signs, no apparent adverse anesthesia problems. No complications reported per nursing. ESTELLA ROJAS CRNA Jul 12, 2018 13:32
--- NOTE | 2018-07-12 22:44 | OPERATIVE REPORT ---
DATE OF SERVICE: 07/12/2018 PREOPERATIVE DIAGNOSIS: Screening colonoscopy. POSTOPERATIVE DIAGNOSES: 1. Cecal polyp. 2. Internal hemorrhoids. PROCEDURE: Colonoscopy with cold biopsy. SURGEON: Sukhdev Wing D.O. SOFT WATER MECHANIC: Toma Faulkner med student 3. ANESTHESIA: IV sedation by COMPRESS ENGINEER. SPECIMEN: Cecal polyp. BLOOD LOSS: Scant. FLUIDS: Per anesthesia. POSTOPERATIVE CONDITION: Stable. INDICATION FOR PROCEDURE: The patient is a 58-year-old male who needs a screening colonoscopy. FINDINGS: The patient had a small flat polyp in the cecum and some internal hemorrhoids, otherwise no other obvious pathology. PROCEDURE NOTE: After informed consent was obtained, the patient was brought to the endoscopy suite, placed in the bed left lateral decubitus position. He was administered IV sedation by the COMPRESS ENGINEER and then monitored his vitals the entire time, heart rate, blood pressure and pulse ox and the scope was inserted, pushed all the way to about 150 cm, able to get to the cecum, took a picture of appendiceal orifice, noted the ileocecal valve and then almost right on the ileocecal valve saw a small flat polyp, elected to do a cold biopsy here and then continued up the ascending colon to the hepatic flexure, then down the transverse colon, the splenic flexure, into the descending colon and down in the sigmoid and finally into the rectum, retroflexed the rectal vault, saw some minimal internal hemorrhoids, took a picture of this and then removed the scope. The patient tolerated the procedure and he was then recovered in endoscopy suite. Job ID: [id number] DocumentID: [id number] Dictated Date: 07/12/2018 13:36:56 Tugboat Captain Date: 07/12/2018 22:42:45 Dictated By: SUKHDEV WING DO
== END 2018-07-12 13:00 | disposition home or self-care (01) ==
LOC: ENDO 11:04
PROVIDERS: ATTEND Surgery
DX: Z12.11 Encounter for screening for malignant neoplasm of colon (principal); K63.5 Polyp of colon; K64.8 Other hemorrhoids; Z85.46 Personal history of malignant neoplasm of prostate; K21.9 Gastro-esophageal reflux disease without esophagitis; Z79.899 Other long term (current) drug therapy

== ENCOUNTER → 2021-10-23 | Outpatient (CLI) | payer BC ==
[~2021-10-23] MED LIST changes: +ACHD5005 PO; -DOCU-238 PO; +DOCU-26 PO; -HYDR-3812 PO
[2021-10-23 14:25] VITALS: BP 120/71
== END ==
LOC: CARD 13:00
PROVIDERS: ATTEND Internal Medicine Cardiovascular Disease
DX: I10 Essential (primary) hypertension (principal); I25.10 Atherosclerotic heart disease of native coronary artery without angina pectoris
CPT/HCPCS: 93306; 93351

== ENCOUNTER 2021-11-07 05:42 | Outpatient (CLI) | payer BC ==
[~2021-11-07] VITALS: Ht 182.9 cm; Wt 102.1 kg
[2021-11-07] MEDS ORDERED: PREG150C46 PO (10:06)
[2021-11-07] MEDS ORDERED: MV-M1TAB20 PO (10:06)
== END 2021-11-07 11:15 | disposition home or self-care (01) ==
LOC: PREOP 05:42
PROVIDERS: ATTEND Surgery
DX: Z01.818 Encounter for other preprocedural examination (principal)

== ENCOUNTER 2021-11-18 09:52 | Day surgery (SDC) | payer BC ==
[~2021-11-18] VITALS: Ht 182.9 cm; Wt 102.1 kg
[~2021-11-18 09:52] MED LIST changes: +MV-M1TAB20 PO; +PREG150C46 PO
[2021-11-18] MEDS ORDERED: LACTATED RINGERS 1,000 ML IV STA (09:58)
[2021-11-18] MEDS ORDERED: LACTATED RINGERS 1,000 ML IV ONE (09:59)
[2021-11-18] MEDS ORDERED: HURRICAINE EXT TUBE (BENZOCAINE) XX PRN (10:00)
--- NOTE | 2021-11-18 10:07 | Progress Note-Pre Operative ---
Pre-Operative Progress Note H&P Reviewed The H&P was reviewed, patient examined and no changes noted. Time Seen by Provider: 10:06 Date H&P Reviewed: Nov 18, 2021 Time H&P Reviewed: 10:06 Pre-Operative Diagnosis: Chronic Gastritis TALYA HEREDIA DO Nov 18, 2021 10:07
[2021-11-18 10:20] VITALS: BP 127/80
[2021-11-18] MEDS ORDERED: proPOfol 200 MG/20 ML (DIPRIVAN) VIAL IV ONE ×2 (11:09→11:13)
[2021-11-18 11:32] VITALS: BP 102/60
[2021-11-18 11:35] VITALS: BP 108/64
--- NOTE | 2021-11-18 11:50 | Progress Note-Post Operative ---
Post-Operative Progess Note Surgeon (s)/Collections Professional (s) Surgeon TALYA HEREDIA DO Collections Professional: none Pre-Operative Diagnosis Chronic Gastritis Post-Operative Diagnosis mild gastritis small hiatal hernia Procedure & Operative Findings Date of Procedure 11/18/21 Procedure Performed/Findings EGD with bx PROCEDURE NOTE: After informed consent was obtained, the patient was brought to the endoscopy suite, placed in bed in left lateral decubitus position. He was administered IV sedation by the COMMUNICATIONS SYSTEMS ENGINEER who then monitored vitals the entire time, heart rate, blood pressure and pulse ox and the scope was inserted down the mouth through the esophagus into the stomach. On the way down, noted some mild esophagitis, took a picture, pushed into the stomach, pushed past the antrum into the duodenum. Duodenum looked good. Pulled back and did a biopsy of antrum, then retroflexed the scope, saw small hiatal hernia and took a picture of this. Then pulled the scope into the GE junction, took another picture of the esophagitis and then did a biopsy of the GE junction. Pushed the scope back into the stomach, suctioned all the air out of the stomach. At this point pulled the scope up the esophagus and out the mouth. The patient tolerated the procedure, and he recovered in endoscopy suite. Anesthesia Type IV sedation by anesthesia Estimated Blood Loss Estimated blood loss (mL): scant Specimens/Packing Specimens Removed antral bx GE jxn bx TALYA HEREDIA DO Nov 18, 2021 11:50
--- NOTE | 2021-11-18 11:51 | Endoscopy Discharge Instruct ---
Endo Procedure/Findings Findings 1.: Gastritis 2.: Hiatal Hernia Discharge Instructions - Activity: You might feel a little sleepy until tomorrow. This is due to the medicine you received to relax you. Until tomorrow, you should: NOT drive a car, operate machinery or power tools. NOT drink any alcoholic beverages. NOT make any important decisions or sign importortant papers. Do not return to work until tomorrow, unless otherwise instructed. Resume previous activities tomorrow. Diet: Start by taking liquids. If you tolerate liquids, advance to solid food. 1.: EGD in 3 years Notify Physician - If you experience excessive bleeding, unusual abdominal pain, fever, or chest pain, contact your doctor immediately. TALYA HEREDIA DO Nov 18, 2021 11:51
[2021-11-18 11:57] VITALS: BP 108/64
--- NOTE | 2021-11-18 14:17 | Anesthesia-General Post-Op ---
MAC Patient Condition Mental Status/LOC: Same as Preop Cardiovascular: Satisfactory Nausea/Vomiting: Absent Respiratory: Satisfactory Pain: Controlled Complications: Absent Post Op Complications Complications None Follow Up Care/Instructions Patient Instructions None needed. Anesthesiology Discharge Order Discharge Order Patient wass doing well this morning after the procedure with no complaints, stable vital signs, no apparent adverse anesthesia problems. COURT DE LEON DO Nov 18, 2021 14:17
== END 2021-11-18 12:10 | disposition home or self-care (01) ==
LOC: ENDO 09:52
PROVIDERS: ATTEND Surgery
DX: K29.50 Unspecified chronic gastritis without bleeding (principal); K44.9 Diaphragmatic hernia without obstruction or gangrene; K20.90 Esophagitis, unspecified without bleeding; Z85.038 Personal history of other malignant neoplasm of large intestine; E66.9 Obesity, unspecified; Z68.30 Body mass index [BMI] 30.0-30.9, adult

== ENCOUNTER → 2022-01-16 | Outpatient (CLI) | payer BC ==
[~2022-01-16] VITALS: Ht 182.9 cm; Wt 102.3 kg
[~2022-01-16] MED LIST changes: +GADOTERATE 0.5 MMOL/ML (CLARISCAN) 15 ML VIAL IV ONE; +IOHEXOL 240 MGI/ML 50 ML (OMNIPAQUE) VIAL IV ONE
--- NOTE | 2022-01-16 15:06 | Diagnostic Imaging Report ---
EXAMINATION: Magnetic resonance imaging of the left shoulder with intra-articular contrast. DATE: January 16, 2022. COMPARISON: Left shoulder arthrogram January 16, 2022. HISTORY: 61-year-old male, left shoulder pain. TECHNIQUE: Magnetic Resonance Imaging sequences were performed of the shoulder following the intra-articular administration of contrast. FINDINGS: ROTATOR CUFF, LIGAMENTS, TENDONS, AND MUSCLES: The supraspinatus, infraspinatus, teres minor, and subscapularis tendons and muscles are intact. There is normal rotator cuff muscle bulk and signal. LONG HEAD OF BICEPS: The biceps labral attachment and long head of the biceps tendon is intact. The long head of the biceps tendon is normally positioned within the bicipital groove. GLENOHUMERAL JOINT: The humeral head is well positioned relative to the glenoid. The labrum is intact. There is no identified paralabral cyst. The articular cartilage is grossly intact. There is no identified intra-articular body or prominent synovitis. ACROMIOCLAVICULAR JOINT: The acromioclavicular joint is normally aligned. The coracoclavicular and coracoacromial ligaments are intact. There are mild acromioclavicular degenerative changes without large undersurface osteophyte. BONE: There is no os acromiale. There is no Hill-Sachs deformity. There is no acute fracture, bone contusion, or evidence of osteonecrosis. There is a small low signal focus in the proximal humeral metaphysis most consistent with benign bone island measuring 7 mm in size. BURSAE AND SOFT TISSUES: The bursae and soft tissue surrounding the shoulder are unremarkable. IMPRESSION: 1. Intact rotator cuff tendons and proximal long head of the biceps tendon. 2. Intact labrum and unremarkable additional glenohumeral joint assessment. 3. Mild acromio clavicular degenerative changes without undersurface osteophyte. 4. No acute fracture, bone contusion, or other notable bone marrow signal abnormality. Dictated by: Dictated on workstation # [id number]
--- NOTE | 2022-01-16 16:02 | Diagnostic Imaging Report ---
INDICATION: Left shoulder pain. Patient brought to the procedure room placed on table in the supine position. Left shoulder was prepped and draped in usual sterile fashion. Small amount 1% lidocaine was utilized for local anesthesia. 21-gauge needle was advanced into the left shoulder rotator interval. A 15 mm solution of iodinated contrast, normal saline and gadolinium was injected under fluoroscopic observation. Total of 19 seconds fluoroscopic time was utilized. Needle was withdrawn. Hemostasis was obtained. Patient tolerated the procedure well and left the department in in stable condition. IMPRESSION: Successful left shoulder injection of gadolinium contrast solution, using fluoroscopy. Dictated by: Dictated on workstation # [id number]
== END ==
LOC: RAD 13:30
PROVIDERS: ATTEND Nurse Practitioner Family
DX: M19.012 Primary osteoarthritis, left shoulder (principal); M25.812 Other specified joint disorders, left shoulder; R20.2 Paresthesia of skin; L71.9 Rosacea, unspecified
CPT/HCPCS: 23350; 73040; 73222

== ENCOUNTER → 2022-01-30 | Outpatient (RCR) | payer BC ==
[~2022-01-30] MED LIST changes: -GADOTERATE 0.5 MMOL/ML (CLARISCAN) 15 ML VIAL IV ONE; -IOHEXOL 240 MGI/ML 50 ML (OMNIPAQUE) VIAL IV ONE
== END | disposition home or self-care (01) ==
PROVIDERS: ATTEND Family Medicine
DX: M25.812 Other specified joint disorders, left shoulder (principal); L71.9 Rosacea, unspecified; R20.2 Paresthesia of skin

== ENCOUNTER 2022-02-13 15:55 | Outpatient (RCR) | payer BC | END 2022-03-02 | disposition home or self-care (01) | PROVIDERS: ATTEND Family Medicine | DX: M25.812 Other specified joint disorders, left shoulder (principal); L71.9 Rosacea, unspecified; R20.2 Paresthesia of skin ==

== ENCOUNTER → 2023-06-09 | Outpatient (CLI) | payer BC ==
[~2023-06-09] MED LIST changes: -PREG150C46 PO; +PREG150C47 PO
--- NOTE | 2023-06-09 08:53 | Diagnostic Imaging Report ---
PROCEDURE: CT head without contrast. TECHNIQUE: Multiple contiguous axial images were obtained through the brain without the use of intravenous contrast. Auto Exposure Controls were utilized during the CT exam to meet ALARA standards for radiation dose reduction. INDICATION: Headache COMPARISON: CT of the sinuses 05/07/2018. FINDINGS: No acute intracranial hemorrhage. The arevalo-white differentiation is preserved. The ventricles and cortical sulci are normal. No midline shift or mass effect. No mass or fluid collection. The subarachnoid cisterns are maintained. The sella is normal. The paranasal sinuses and mastoids are clear. The skull is intact. IMPRESSION: No acute intracranial hemorrhage. No large vascular territory jimenez-white loss. No intracranial mass, midline shift, or hydrocephalus. Dictated by: Dictated on workstation # [id number]
== END ==
LOC: RAD 08:05
PROVIDERS: ATTEND Family Medicine
DX: G43.901 Migraine, unspecified, not intractable, with status migrainosus (principal); D22.5 Melanocytic nevi of trunk; L98.8 Other specified disorders of the skin and subcutaneous tissue; L71.0 Perioral dermatitis
CPT/HCPCS: 70450